=== PATIENT | female | born 1990 | race African-American/Black ===

== ENCOUNTER 2018-02-23 19:18 | Emergency (ER) | payer SELFPAY ==
[2018-02-23] MEDS ORDERED: OXYCODONE-ACETAMINOPHEN 5-325 MG TABLET PO ONE (20:06)
[2018-02-23] MEDS ORDERED: CARVEDILOL 12.5 MG TABLET PO ONE (20:06)
--- NOTE | 2018-02-23 20:08 | ER Document Report ---
HPI - HPI Patient complains to provider of: Bilateral heel pain Time Seen by Provider: 02/23/18 19:51 Onset: Last week Onset/Duration: Persistent Quality of pain: Achy Pain Level: 4 Context: Patient presents complaining of bilateral heel pain. 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 Patient denies any injury although does state that she has been up ambulating more frequently due to visiting family in chasing a toddler room. Patient states that she had a stroke last year due to hypertension and she is just started to get her strength back to ambulate. Patient does wear an orthotic brace in her shoe. Patient is here visiting from [place] and is only go to be in town a few more weeks. Patient denies any fever. Associated Symptoms: Other - Bilateral heel pain Exacerbated by: Standing, Movement, Walking Relieved by: Denies Similar symptoms previously: No Recently seen / treated by doctor: No - ROS ROS below otherwise negative: Yes Systems Reviewed and Negative: Yes All other systems reviewed and negative - CONSTITUTIONAL Constitutional: DENIES: Fever, Chills - NEURO Neurology: DENIES: Weakness - GASTROINTESTINAL Gastrointestinal: DENIES: Nausea - REPRODUCTIVE Reproductive: DENIES: : - MUSCULOSKELETAL Musculoskeletal: REPORTS: Extremity pain. DENIES: Swelling - DERM Skin Color: Normal Skin Problems: None Past Medical History - General Information source: Patient - Social History Smoking Status: Never Smoker Frequency of alcohol use: Occasional Drug Abuse: None Lives with: Family Family History: Reviewed & Not Pertinent - Medical History Medical History: Other - Lupus - Past Medical History Cardiac Medical History: Reports: Hx Congestive Heart Failure, Hx Hypertension, Other - Pulmonary hypertension Neurological Medical History: Reports: Hx Cerebrovascular Accident Musculoskeletal Medical History: Reports Other - Osteonecrosis Past Surgical History: Reports: Other - Lymph node biopsy Vertical Provider Document - CONSTITUTIONAL Agree With Documented VS: Yes Exam Limitations: No Limitations General Appearance: WD/WN, No Apparent Distress - INFECTION CONTROL TRAVEL OUTSIDE OF THE [place] IN LAST 30 DAYS: No - HEENT HEENT: Atraumatic, Normocephalic - NECK Neck: Normal Inspection - RESPIRATORY Respiratory: Breath Sounds Normal, No Respiratory Distress - CARDIOVASCULAR Cardiovascular: Regular Rate, Regular Rhythm - BACK Back: Normal Inspection - MUSCULOSKELETAL/EXTREMETIES Musculoskeletal/Extremeties: MAEW, Tender - Tenderness to plantar aspect of bilateral calcaneous - NEURO Level of Consciousness: Awake, Alert, Appropriate Motor/Sensory: No Motor Deficit - I am not sure what you have to have you to take this - DERM Integumentary: Warm, Dry, Rash - chronic hyperpigmeneted rash to face/extremities Course - Re-evaluation Re-evalutation: 02/23/18 21:35 Discussed with patient radiology findings. Patient states that her left foot is not the foot that is been as painful as the right. Patient states that due to her stroke she is not able to manage crutches. Patient declines immobilizing her left foot at this time. Patient does wear an orthotic that keeps her left foot at a 90 degree angle given her history of stroke and weakness. Patient does have tenderness along her plantar fascia of the right foot. Normal skin color and temperature overlying area of tenderness. No concern for sepsis. Patient encouraged to follow-up with either orthopedics or podiatry for further evaluation. Discussed pain management with patient. Patient encouraged to avoid use of NSAIDs given her history. - Vital Signs Vital signs: Temp Pulse Resp BP Pulse Ox 98.4 F 82 16 175/123 H 100 02/23/18 19:29 02/23/18 19:29 02/23/18 19:29 02/23/18 19:29 02/23/18 19:29 - Diagnostic Test Radiology reviewed: Image reviewed, Reports reviewed Discharge - Discharge Clinical Impression: Bilateral foot pain, Plantar fasciitis Stress fracture of calcaneus Qualifiers: Encounter type: initial encounter Laterality: unspecified laterality Qualified Code(s): M84.376A - Stress fracture, unspecified foot, initial encounter for fracture Condition: Stable Disposition: HOME, SELF-CARE Instructions: Fracture ([facility]), Oral Narcotic Medication ([facility]), Plantar Fasciitis or Heel Spur ([facility]) Additional Instructions: Return immediately for any new or worsening symptoms Followup with your primary care provider, call tomorrow to make a followup appointment Avoid use of nonsteroidal anti-inflammatories such as Motrin, Aleve and naproxen Follow-up with orthopedics or podiatry for further evaluation of your foot pain Wear good supportive shoes when up Prescriptions: Hydrocodone/Acetaminophen [Lamoure 5-325 mg Tablet] 1 tab PO Q6 PRN #15 tablet PRN Reason: Walker [Folding Walker] 1 each MC ASDIR PRN #1 each PRN Reason: Referrals: MINH PADILLA DPM [ACTIVE STAFF] - Follow up as needed SOPHIA CASTILLO DPM [ACTIVE STAFF] - Follow up as needed [facility] [Provider Group] - 02/25/18
--- NOTE | 2018-02-23 20:56 | RADIOLOGY REPORT (SQ) ---
EXAM DESCRIPTION: OS CALCIS/HEEL BILAT 2 VIEWS COMPLETED DATE/TIME: 02/23/2018 8:31 pm REASON FOR STUDY: bilat heel pain, hx osteonecrosis/ steroid use COMPARISON: None. NUMBER OF VIEWS: Two views. TECHNIQUE: Plantar and oblique radiographic images acquired of the right and left calcaneous. LIMITATIONS: None. FINDINGS: MINERALIZATION: Osteopenia. BONES: Short area of cortical discontinuity of the left calcaneus with a small cortical bulge seen on the axial view of the left calcaneus. No additional fracture. Diminutive appearance of of both miriam us with increased sclerosis. Large osteophytes arise and posterior subtalar joint and anterior talus . Cortical discontinuity along the posterior aspect of the right talar dome with sclerotic margins, likely sequelae of prior injury. JOINTS: No effusions. SOFT TISSUES: No soft tissue swelling. No foreign body. OTHER: No other significant finding. IMPRESSION: 1. Possible stress fracture left calcaneus. 2. Deformities and increased sclerosis of both talus common consistent with patient's history of avas cular necrosis. No prior images available for comparison to evaluate progression. TECHNICAL DOCUMENTATION: JOB ID: [id number] [employer]- All Rights Reserved Reading location - IP/workstation name: [email or web address]
[2018-02-23 21:46] VITALS: BP 152/108
== END 2018-02-23 22:21 | disposition home or self-care (01) ==
LOC: ER 19:18
DX: M72.2 Plantar fascial fibromatosis (principal); M84.376A Stress fracture, unspecified foot, initial encounter for fracture; M79.672 Pain in left foot; M79.671 Pain in right foot; X58.XXXA Exposure to other specified factors, initial encounter; I50.9 Heart failure, unspecified; I11.0 Hypertensive heart disease with heart failure; Z86.73 Personal history of transient ischemic attack (TIA), and cerebral infarction without residual deficits
CPT/HCPCS: 99283

== ENCOUNTER 2018-05-03 20:33 | Emergency (ER) | payer SELFPAY ==
--- NOTE | 2018-05-03 20:50 | ER Document Report ---
ED Medical Screen (RME) - General Stated Complaint: LEFT SIDE TINGLING,SEVERE HEADACHE,CHEST PAIN Time Seen by Provider: 05/03/18 20:47 Mode of Arrival: Ambulatory Information source: Patient Notes: Patient is a 27-year-old female with past medical history of lupus, pulmonary hypertension, CHF and CVA in 2018. She states that she has been having a tingling feeling on the left side, faint chest pains in the center of her chest, as well as headache that all started yesterday at approximately 11 AM. Patient denies any weakness and is able to ambulate without difficulty. Patient reports a left sided residual deficit from her previous stroke. TRAVEL OUTSIDE OF THE [place] IN LAST 30 DAYS: No - Related Data Allergies/Adverse Reactions: hydroxychloroquine [From Plaquenil] Allergy (Verified 02/23/18 20:08) Past Medical History - Past Medical History Cardiac Medical History: Reports: Hx Congestive Heart Failure, Hx Hypertension Neurological Medical History: Reports: Hx Cerebrovascular Accident Renal/ Medical History: Denies: Hx Peritoneal Dialysis Past Surgical History: Reports: Other - Lymph node biopsy
--- NOTE | 2018-05-03 21:00 | ER Document Report ---
Doctor's Note Notes: 05/03/18 20:58 Patient upgraded to BRITTNEY 2 due to significantly elevated blood pressure. Patient reports she is compliant with her antihypertensives, states her blood pressure is usually within normal ranges.
[2018-05-03 23:05] LABS: INTERNATIONAL RATION (INR) 0.93; PROTHROMBIN TIME 12.9 SEC (11.4-15.4)
[2018-05-03 23:06] LABS: PARTIAL THROMBOPLASTIN TIME 27.7 SEC (23.5-35.8)
[2018-05-03 23:06] LABS: HEMATOCRIT 35.8 % (36.0-47.0); HEMOGLOBIN 11.4 g/dL (12.0-15.5); MEAN CORPUSCULAR HEMOGLOBIN 22.4 pg (27.0-33.4); MEAN CORPUSCULAR HGB CONC 31.8 g/dL (32.0-36.0); MEAN CORPUSCULAR VOLUME 71 fl (80-97); PLATELET COUNT 324 10^3/uL (150-450); RED BLOOD COUNT 5.08 10^6/uL (3.72-5.28); RED CELL DISTRIBUTION WIDTH 20.9 % (11.5-14.0); WHITE BLOOD COUNT 4.3 10^3/uL (4.0-10.5)
--- NOTE | 2018-05-03 23:07 | EKG REPORT ---
SEVERITY:- ABNORMAL ECG - SINUS RHYTHM CONSIDER LEFT VENTRICULAR HYPERTROPHY BORDERLINE T ABNORMALITIES, INFERIOR LEADS : Confirmed by: Amaris Howard 03-May-2018 23:06:02
[2018-05-03 23:19] LABS: ALANINE AMINOTRANSFERASE 18 U/L (9-52); ALBUMIN 3.8 g/dL (3.5-5.0); ALKALINE PHOSPHATASE 51 U/L (38-126); ANION GAP 6 (5-19); ASPARTATE AMINO TRANSFERASE 21 U/L (14-36); BILIRUBIN,DIRECT 0.1 mg/dL (0.0-0.4); BILIRUBIN,TOTAL 0.4 mg/dL (0.2-1.3); BLOOD UREA NITROGEN 15 mg/dL (7-20); CALCIUM 9.2 mg/dL (8.4-10.2); CARBON DIOXIDE 29 mmol/L (22-30); CHLORIDE 103 mmol/L (98-107); CREATINE KINASE 27 U/L (30-135); GLUCOSE 102 mg/dL (75-110); POTASSIUM 3.8 mmol/L (3.6-5.0); SODIUM 138.3 mmol/L (137-145); TOTAL PROTEIN 7.6 g/dL (6.3-8.2)
[2018-05-03 23:26] LABS: ABSOLUTE LYMPHOCYTES# (MANUAL) 1.8 10^3/uL (0.5-4.7); ABSOLUTE MONOCYTES # (MANUAL) 0.5 10^3/uL (0.1-1.4); ABSOLUTE NEUTROPHILS# (MANUAL) 2.1 10^3/uL (1.7-8.2); BASOPHILS % (MANUAL) 0 % (0-2); EOSINOPHILS % (MANUAL) 0 % (0-6); LYMPHOCYTES % (MANUAL) 41 % (13-45); MONOCYTES % (MANUAL) 11 % (3-13); SEGMENTED NEUTROPHILS % (MAN) 48 % (42-78); TOTAL CELLS COUNTED 100
[2018-05-03 23:27] LABS: ANISOCYTOSIS 3+; HYPOCHROMASIA 1+; POIKILOCYTOSIS 2+; POLYCHROMASIA 3+; TARGET CELLS 1+; TEAR DROP CELLS 1+
[2018-05-03 23:28] LABS: PLATELET COMMENT ADEQUATE
[2018-05-03 23:40] LABS: CREATINE KINASE MB < 0.22 ng/mL (<4.55); TROPONIN I < 0.012 ng/mL
[2018-05-04] MEDS ORDERED: HALOPERIDOL LACTATE INJ 5 MG/1 ML VIAL IV ONE (00:01)
--- NOTE | 2018-05-04 00:49 | ER Document Report ---
ED General - General Chief Complaint: Medical Complaint Stated Complaint: LEFT SIDE TINGLING,SEVERE HEADACHE,CHEST PAIN Time Seen by Provider: 05/03/18 20:47 Mode of Arrival: Ambulatory Notes: Patient is a 27-year-old female with past medical history of lupus, pulmonary hypertension, CHF and CVA in 2018. She states that she has been having a tingling feeling on the left side, as well as headache that all started ye sterday at approximately 11 AM. Patient complained of chest pain in triage but denies this to me. Headache was gradual in onset, is a throbbing, aching, global pain. Worsened by lights, sounds. Has this history of headaches in the past uncertain if this is worse than previous headaches. Denies fever or constitutional symptoms. No neck pain. Patient denies any weakness and is able to ambulate without difficulty. Patient reports a left sided residual deficit from her previous stroke. TRAVEL OUTSIDE OF THE [place] IN LAST 30 DAYS: No - Related Data Allergies/Adverse Reactions: hydroxychloroquine [From Plaquenil] Allergy (Verified 02/23/18 20:08) Past Medical History - General Information source: Patient - Social History Smoking Status: Never Smoker Frequency of alcohol use: Occasional Drug Abuse: None Lives with: Family Family History: Reviewed & Not Pertinent Patient has suicidal ideation: No Patient has homicidal ideation: No - Past Medical History Cardiac Medical History: Reports: Hx Congestive Heart Failure, Hx Hypertension Neurological Medical History: Reports: Hx Cerebrovascular Accident Renal/ Medical History: Denies: Hx Peritoneal Dialysis Past Surgical History: Reports: Other - Lymph node biopsy Review of Systems - Review of Systems Notes: Constitutional: Negative for fever. HENT: Negative for sore throat. Eyes: Negative for visual changes. Cardiovascular: Positive for chest pain. Respiratory: Negative for shortness of breath. Gastrointestinal: Negative for abdominal pain, vomiting or diarrhea. Genitourinary: Negative for dysuria. Musculoskeletal: Negative for back pain. Skin: Negative for rash. Neurological: Positive for headache, left upper extremity paresthesias 10 point ROS negative except as marked above and in HPI. Physical Exam - Vital signs Vitals: Temp Pulse Resp BP Pulse Ox 99.2 F 74 16 154/123 H 99 05/03/18 20:55 05/03/18 20:55 05/03/18 20:55 05/03/18 20:55 05/03/18 20:55 Interpretation: Hypertensive Notes: PHYSICAL EXAMINATION: GENERAL: Well-appearing, well-nourished and in no acute distress. HEAD: Atraumatic, normocephalic. EYES: Pupils equal round and reactive to light, extraocular movements intact, sclera anicteric, conjunctiva are normal. ENT: nares patent, oropharynx clear without exudates. Moist mucous membranes. NECK: Normal range of motion, supple without lymphadenopathy LUNGS: Breath sounds clear to auscultation bilaterally and equal. No wheezes rales or rhonchi. HEART: Regular rate and rhythm without murmurs ABDOMEN: Soft, nontender, normoactive bowel sounds. No guarding, no rebound. No masses appreciated. EXTREMITIES: Normal range of motion, no pitting or edema. No cyanosis. NEUROLOGICAL: Face symmetric. Tongue protrudes midline. Extraocular motions intact. Pupils are 2 mm and equally reactive. Normal speech. 5 out of 5 strength in both the distal and proximal upper and lower extremities bilaterally. Sensation is grossly intact throughout. Finger to nose testing normal. Pronator drift normal. PSYCH: Normal mood, normal affect. SKIN: Warm, Dry, normal turgor, no rashes or lesions noted. Course - Re-evaluation Re-evalutation: 05/04/18 00:48 Patient presents with 36 hours of left upper extremity paresthesias as well as a headache and chest discomfort. The patient has a history of a prior CVA, has some residual left-sided deficits at baseline. The only complaint regarding her neurologic status is that her left upper extremity feels tingly particularly in the second through fourth digits on the volar pads as well as over the forearm. She states that her weakness is unchanged. Denies any increased difficulty in walking. On neurologic exam she has 5 out of 5 biceps and triceps strength bilaterally, RMU motor and sensory distribution is intact. There is no sensory deficits. She is clear to state that it feels more of a added sensation such as a paresthesia as opposed to true loss of sensation. Her symptoms have been present for 36 hours. Her headache was gradual in onset, has a history of similar headaches, not clinically consistent with a meningitis, insufflated, subarachnoid hemorrhage or intracranial mass. Overall very low clinical edna picion for recurrent CVA although given duration of symptoms I think a CT of the head without contrast would be reasonable to rule out any evidence of acute infarction which should be present at this time given duration of symptoms. Will also provide haloperidol to treat her headache and see if this resolves her paresthesias. 05/04/18 02:[address] scan. She states that after haloperidol all of her paresthesias has resolved. She feels at baseline, states that she no longer feels that she needs and would like to go home. Given the complete resolution of her symptoms after receiving haloperidol for migraine I suspect that her symptoms were related to the underlying headache. Patient understands that we cannot definitively exclude stroke without imaging of the brain and he understands this risk. At this time will discharge with return precautions and follow-up recommendations. Verbal discharge instructions given a the bedside and opportunity for questions given. Medication warnings reviewed. Patient is in agreement with this plan and has verbalized understanding of return precautions and the need for primary care follow-up in the next 24-72 hours. - Vital Signs Vital signs: Temp Pulse Resp BP Pulse Ox 99.2 F 74 18 150/99 H 100 05/03/18 20:55 05/03/18 20:55 05/04/18 02:00 05/04/18 02:00 05/04/18 02:00 - Laboratory Result Diagrams: 05/03/18 22:47 05/03/18 22:32 Laboratory results interpreted by me: 05/03/18 05/03/18 22:32 22:47 Hgb 11.4 L Hct 35.8 L MCV 71 L MCH 22.4 L MCHC 31.8 L RDW 20.9 H Creatine Kinase 27 L - EKG Interpretation by Me Additional EKG results interpreted by me: 05/04/18 02:52 Sinus rhythm, rate 61. No ST elevations or depressions. QTC 415. Discharge - Discharge Clinical Impression: Paresthesia of left upper extremity Headache Qualifiers: Headache type: unspecified Headache chronicity pattern: acute headache Intractability: not intractable Qualified Code(s): R51 - Headache Condition: Good Disposition: HOME, SELF-CARE Additional Instructions: You have been seen in the Emergency Department (ED) for a headache. Please use Tylenol (acetaminophen) or Motrin (ibuprofen) as needed for symptoms, but only as written on the box. As we have discussed, please follow up with your primary care doctor as soon as possible regarding today's ED visit and your headache symptoms. Call your doctor or return to the ED if you have a worsening headache, sudden and severe headache, confusion, slurred speech, facial droop, weakness or numbness in any arm or leg, extreme fatigue, or other symptoms that concern you.
[2018-05-04] MEDS ORDERED: DIPHENHYDRAMINE HCL 50 MG/ML VIAL IV ONE (02:11)
[2018-05-04 03:39] VITALS: BP 160/98
== END 2018-05-04 03:50 | disposition home or self-care (01) ==
LOC: ER 20:33
DX: R20.2 Paresthesia of skin (principal); R51 Headache; R07.9 Chest pain, unspecified; Z86.73 Personal history of transient ischemic attack (TIA), and cerebral infarction without residual deficits; I50.9 Heart failure, unspecified; I11.0 Hypertensive heart disease with heart failure
CPT/HCPCS: 93005; 99284; 96374; 96375; 36415; 82553; 82550; 85025; 85610; 85730; 80053; 84484; 93010; J1200; J1630

== ENCOUNTER 2018-11-13 12:13 | Emergency (ER) | payer MEDICAID ==
--- NOTE | 2018-11-13 12:29 | ER Document Report ---
ED Medical Screen (RME) - General Stated Complaint: ABDOMINAL PAIN, NAUSEA, VAGINAL BLEEDING Time Seen by Provider: 11/13/18 12:20 Mode of Arrival: Ambulatory Information source: Patient Notes: 28-year-old female presented to ED for complaint of nausea no vomiting vaginal bleeding foul-smelling urine x2 days. She states she just felt a little thick thought she was going to vomit. She does have a history of lupus pulmonary hypertension congestive heart failure and she had a stroke in 2018 with left- sided weakness. He has had lymph node biopsies. She states she smokes 3 cigarettes a day occasionally drinks and does not do any drugs Works [place] lives alone. She states she also has constipation. Patient is alert oriented respirations regular and unlabored speaking in full sentences walks with even steady gait. I have greeted and performed a rapid initial assessment of this patient. A comprehensive ED assessment and evaluation of the patient, analysis of test results and completion of medical decision making process will be conducted by an additional ED providers. TRAVEL OUTSIDE OF THE [place] IN LAST 30 DAYS: No - Related Data Allergies/Adverse Reactions: hydroxychloroquine [From Plaquenil] Allergy (Verified 11/13/18 12:24) Past Medical History - Past Medical History Cardiac Medical History: Reports: Hx Congestive Heart Failure, Hx Hypertension Neurological Medical History: Reports: Hx Cerebrovascular Accident Renal/ Medical History: Denies: Hx Peritoneal Dialysis Past Surgical History: Reports: Other - Lymph node biopsy Physical Exam - Vital signs Vitals: Temp Pulse Resp BP Pulse Ox 98.5 F 108 H 16 169/125 H 100 11/13/18 12:24 11/13/18 12:24 11/13/18 12:24 11/13/18 12:24 11/13/18 12:24 Course - Vital Signs Vital signs: Temp Pulse Resp BP Pulse Ox 98.5 F 108 H 16 169/125 H 100 11/13/18 12:24 11/13/18 12:24 11/13/18 12:24 11/13/18 12:24 11/13/18 12:24
[2018-11-13] MEDS ORDERED: ONDANSETRON 4 MG TAB.RAPDIS PO ONE (12:30)
[2018-11-13 13:20] LABS: INTERNATIONAL RATION (INR) 0.95; PARTIAL THROMBOPLASTIN TIME 27.2 SEC (23.5-35.8); PROTHROMBIN TIME 12.6 SEC (11.4-15.4)
[2018-11-13 13:36] LABS: ALBUMIN 3.8 g/dL (3.5-5.0); ALKALINE PHOSPHATASE 66 U/L (38-126); ANION GAP 8 (5-19); ASPARTATE AMINO TRANSFERASE 31 U/L (14-36); BILIRUBIN,TOTAL 0.5 mg/dL (0.2-1.3); BLOOD UREA NITROGEN 7 mg/dL (7-20); CALCIUM 9.1 mg/dL (8.4-10.2); CARBON DIOXIDE 26 mmol/L (22-30); CHLORIDE 105 mmol/L (98-107); CREATINE KINASE 32 U/L (30-135); GLUCOSE 88 mg/dL (75-110); TOTAL PROTEIN 7.8 g/dL (6.3-8.2)
[2018-11-13 13:37] LABS: ABSOLUTE LYMPHOCYTES (AUTO) 1.1 10^3/uL (0.5-4.7); ABSOLUTE MONOCYTES (AUTO) 0.6 10^3/uL (0.1-1.4); ABSOLUTE NEUT (AUTO) 3.8 10^3/uL (1.7-8.2); BASOPHILS % (AUTO) 0.4 % (0-2); HEMATOCRIT 41.6 % (36.0-47.0); HEMOGLOBIN 13.6 g/dL (12.0-15.5); LYMPHOCYTES % (AUTO) 20.7 % (13-45); MEAN CORPUSCULAR HEMOGLOBIN 25.5 pg (27.0-33.4); MEAN CORPUSCULAR HGB CONC 32.7 g/dL (32.0-36.0); MEAN CORPUSCULAR VOLUME 78 fl (80-97); MONOCYTES % (AUTO) 10.8 % (3-13); PLATELET COUNT 181 10^3/uL (150-450); RED BLOOD COUNT 5.34 10^6/uL (3.72-5.28); RED CELL DISTRIBUTION WIDTH 17.7 % (11.5-14.0); SEGMENTED NEUTROPHILS % (AUTO) 68.1 % (42-78); TOTAL CELLS COUNTED % (AUTO) 100 %; WHITE BLOOD COUNT 5.5 10^3/uL (4.0-10.5)
[2018-11-13 13:49] LABS: CREATINE KINASE MB < 0.22 ng/mL (<4.55); TROPONIN I < 0.012 ng/mL
[2018-11-13 14:02] LABS: BACTERIA (WET MOUNT) 3+ BACTERIA SEEN; EPITHELIALS (WET MOUNT) 3+ EPITHELIALS SEEN; RBCS (WET MOUNT) FEW RBCS SEEN; T.VAGINALIS (WET MOUNT) TRICHOMONAS SEEN; WBCS (WET MOUNT) 1+ WBCS SEEN; YEAST (WET MOUNT) NO YEAST SEEN
[2018-11-13 14:04] LABS: APPEARANCE,URINE SLIGHTLY-CLOUDY; BILIRUBIN,URINE NEGATIVE (NEGATIVE); COLOR,URINE YELLOW; GLUCOSE, URINE NEGATIVE (NEGATIVE); KETONES,URINE NEGATIVE (NEGATIVE); LEUKOCYTE ESTERASE,URINE TRACE (NEGATIVE); NITRITE,URINE NEGATIVE (NEGATIVE); PROTEIN,URINE 100 mg/dL (NEGATIVE); UROBILINOGEN,URINE NEGATIVE mg/dL (<2.0)
[2018-11-13 15:19] LABS: CHLAM PCR NOT DETECTED (NOT DETECT)
[2018-11-13] MEDS ORDERED: CEFTRIAXONE INJ 250 MG VIAL IM ONE (15:41)
[2018-11-13] MEDS ORDERED: AZITHROMYCIN 250 MG TABLET PO ONE (15:41)
[2018-11-13] MEDS ORDERED: METRONIDAZOLE 500 MG TABLET PO ONE (15:41)
--- NOTE | 2018-11-13 16:16 | ER Document Report ---
ED General - General Chief Complaint: Vaginal Bleeding Stated Complaint: ABDOMINAL PAIN, NAUSEA, VAGINAL BLEEDING Time Seen by Provider: 11/13/18 12:20 Primary Care Provider: ANNE MALDONADO MD [Primary Care Provider] - Follow up as needed Mode of Arrival: Ambulatory TRAVEL OUTSIDE OF THE [place] IN LAST 30 DAYS: No - HPI Notes: This is a 28-year-old female who presents today with a complaint of vaginal discharge, vaginal bleeding for the past 2 to 3 days. Patient states her last menstrual. Was about 2 weeks ago she should not be having. Now. She complains of some nausea and had some vomiting yesterday but not today. She denies any chest pain. She denies any fever or chills. She describes her symptoms as mild. She also complains of urinary frequency, urgency and dysuria. There are no obvious aggravating or relieving factors. - Related Data Allergies/Adverse Reactions: hydroxychloroquine [From Plaquenil] Allergy (Verified 11/13/18 12:24) Past Medical History - General Information source: Patient - Social History Smoking Status: Current Every Day Smoker Family History: Reviewed & Not Pertinent Patient has suicidal ideation: No Patient has homicidal ideation: No - Past Medical History Cardiac Medical History: Reports: Hx Congestive Heart Failure, Hx Hypertension Neurological Medical History: Reports: Hx Cerebrovascular Accident Renal/ Medical History: Denies: Hx Peritoneal Dialysis Past Surgical History: Reports: Other - Lymph node biopsy Review of Systems - Review of Systems Constitutional: denies: Fever Cardiovascular: denies: Chest pain, Palpitations Gastrointestinal: Nausea. denies: Abdominal pain, Diarrhea Genitourinary: Burning, Dysuria, Frequency, Urgency. denies: Flank pain Female Genitourinary: Irregular period, Vaginal discharge, Vaginal bleeding, Vaginal odor. denies: Neurological/Psychological: denies: Headaches -: Yes All other systems reviewed and negative Physical Exam - Vital signs Vitals: Temp Pulse Resp BP Pulse Ox 98.5 F 108 H 16 169/125 H 100 11/13/18 12:24 11/13/18 12:24 11/13/18 12:24 11/13/18 12:24 11/13/18 12:24 - General General appearance: Appears well, Alert - Respiratory Respiratory status: No respiratory distress Chest status: Nontender Breath sounds: Normal Chest palpation: Normal - Cardiovascular Rhythm: Regular Heart sounds: Normal auscultation Murmur: No - Abdominal Inspection: Normal Distension: No distension Bowel sounds: Normal Tenderness: Nontender Organomegaly: No organomegaly - Genitourinary Speculum exam: Cervix closed, Vaginal discharge - There is vaginal discharge. No bleeding appreciated. No cervical motion tenderness. No adnexal tenderness. 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 Vaginal bleeding: None Bimanuel exam: No: Cervical motion tender, Bladder/Urethral tender, Adnexal mass, Adnexal tenderness - Neurological Neuro grossly intact: Yes Cognition: Normal Orientation: AAOx4 Mereta Coma Scale Eye Opening: Spontaneous Mereta Coma Scale Verbal: Oriented Mereta Coma Scale Motor: Obeys Commands Hyun Coma Scale Total: 15 Speech: Normal Motor strength normal: LUE, RUE, LLE, RLE Sensory: Normal - Psychological Associated symptoms: Normal affect, Normal mood Course - Re-evaluation Re-evalutation: 11/13/18 16:16 Differential diagnosis includes UTI versus vaginitis versus ectopic versus urethritis. 11/13/18 16:35 Patient reevaluated. Patient is doing well. Feels fine. Labs reviewed. Will cover her for trichomonas. Will also cover for GC chlamydia. Stable for discharge. Follow-up discussed. 11/13/18 16:36 - Vital Signs Vital signs: Temp Pulse Resp BP Pulse Ox 98.5 F 108 H 24 H 144/115 H 100 11/13/18 12:24 11/13/18 12:24 11/13/18 14:01 11/13/18 14:01 11/13/18 14:01 - Laboratory Result Diagrams: 11/13/18 12:50 11/13/18 12:50 Laboratory results interpreted by me: 11/13/18 11/13/18 12:50 12:50 RBC 5.34 H MCV 78 L MCH 25.5 L RDW 17.7 H Urine Protein 100 H Urine Blood MODERATE H Ur Leukocyte Esterase TRACE H Urine Ascorbic Acid 20 H Discharge - Discharge Clinical Impression: Trichomonas vaginalis infection, Acute UTI, DUB (dysfunctional uterine bleeding) Condition: Good Disposition: HOME, SELF-CARE Instructions: Trichomonas Infection ([facility]), Urinary Tract Infection ([facility]) Prescriptions: Ciprofloxacin HCl [Cipro 500 mg Tablet] 500 mg PO BID 10 Days #20 tablet Metronidazole [Flagyl 500 mg Tablet] 500 mg PO BID 7 Days #14 tablet Referrals: ANNE MALDONADO MD [Primary Care Provider] - Follow up as needed
[2018-11-13 16:46] VITALS: BP 172/116
== END 2018-11-13 16:52 | disposition home or self-care (01) ==
LOC: ER 12:13
DX: N93.8 Other specified abnormal uterine and vaginal bleeding (principal); N39.0 Urinary tract infection, site not specified; A59.01 Trichomonal vulvovaginitis; R11.0 Nausea; I10 Essential (primary) hypertension; F17.200 Nicotine dependence, unspecified, uncomplicated; Z88.8 Allergy status to other drugs, medicaments and biological substances
CPT/HCPCS: 99284; 96372; 36415; 87086; 82553; 87210; 82550; 84703; 85025; 85610; 85730; 87088; 80053; 81001; 84484; 87186; 87491; 87591; Q0144; S0119; J3490; J0696

== ENCOUNTER 2018-11-29 11:57 | Emergency (ER) | payer MEDICAID ==
[2018-11-29] MEDS ORDERED: ASPIRIN 81 MG TABLET, CHEWABLE PO ONE (12:00)
[2018-11-29 12:29] LABS: ABSOLUTE MONOCYTES (AUTO) 0.4 10^3/uL (0.1-1.4); ABSOLUTE NEUT (AUTO) 1.6 10^3/uL (1.7-8.2); PLATELET COUNT 187 10^3/uL (150-450); TOTAL CELLS COUNTED % (AUTO) 100 %; WHITE BLOOD COUNT 3.1 10^3/uL (4.0-10.5)
[2018-11-29 12:35] LABS: BASOPHILS % (AUTO) 0.5 % (0-2); HEMOGLOBIN 12.9 g/dL (12.0-15.5); LYMPHOCYTES % (AUTO) 33.2 % (13-45); MEAN CORPUSCULAR HEMOGLOBIN 25.1 pg (27.0-33.4); MEAN CORPUSCULAR HGB CONC 32.3 g/dL (32.0-36.0); MEAN CORPUSCULAR VOLUME 78 fl (80-97); MONOCYTES % (AUTO) 12.7 % (3-13); RED BLOOD COUNT 5.15 10^6/uL (3.72-5.28); RED CELL DISTRIBUTION WIDTH 16.3 % (11.5-14.0); SEGMENTED NEUTROPHILS % (AUTO) 53.6 % (42-78)
[2018-11-29 12:52] LABS: ALBUMIN 3.4 g/dL (3.5-5.0); ALKALINE PHOSPHATASE 58 U/L (38-126); ANION GAP 8 (5-19); ASPARTATE AMINO TRANSFERASE 41 U/L (14-36); BILIRUBIN,DIRECT 0.1 mg/dL (0.0-0.4); BILIRUBIN,TOTAL 0.4 mg/dL (0.2-1.3); BLOOD UREA NITROGEN 7 mg/dL (7-20); CALCIUM 8.8 mg/dL (8.4-10.2); CARBON DIOXIDE 26 mmol/L (22-30); CHLORIDE 105 mmol/L (98-107); CREATINE KINASE 40 U/L (30-135); GLUCOSE 101 mg/dL (75-110); POTASSIUM 3.5 mmol/L (3.6-5.0); TOTAL PROTEIN 7.3 g/dL (6.3-8.2)
[2018-11-29 13:05] LABS: CREATINE KINASE MB 0.39 ng/mL (<4.55)
[2018-11-29 13:06] LABS: TROPONIN I < 0.012 ng/mL
--- NOTE | 2018-11-29 13:19 | RADIOLOGY REPORT (SQ) ---
EXAM DESCRIPTION: CHEST 2 VIEWS COMPLETED DATE/TIME: 11/29/2018 1:08 pm REASON FOR STUDY: cough chest pain pain with deep breath COMPARISON: None. EXAM PARAMETERS: NUMBER OF VIEWS: two views TECHNIQUE: Digital Frontal and Lateral radiographic views of the chest acquired. RADIATION DOSE: NA LIMITATIONS: none FINDINGS: LUNGS AND PLEURA: No opacities, masses or pneumothorax. No pleural effusion. MEDIASTINUM AND HILAR STRUCTURES: No masses or contour abnormalities. HEART AND VASCULAR STRUCTURES: Heart normal size. No evidence for failure. BONES: No acute findings. HARDWARE: None in the chest. OTHER: No other significant finding. IMPRESSION: NO ACUTE RADIOGRAPHIC FINDING IN THE CHEST. TECHNICAL DOCUMENTATION: JOB ID: [id number] [employer]- All Rights Reserved Reading location - IP/workstation name: [email or web address]
[2018-11-29] MEDS ORDERED: HYDRALAZINE HCL INJ/PF 20 MG/1 ML SDV IV ONE (14:16)
--- NOTE | 2018-11-29 14:30 | ER Document Report ---
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 Patient describes the pain as central and sharp. Patient states the pain is still there and has remained constant since onset. Patient states she has had this pain in the past and it was caused by "high blood pressure". Patient states that she has been going back and forth to [place] to get her prescriptions filled because she "does not have a doctor here yet". Patient states she moved here in March 2018 and it is now November. TRAVEL OUTSIDE OF THE [place] IN LAST 30 DAYS: No - Related Data Allergies/Adverse Reactions: hydroxychloroquine [From Plaquenil] Allergy (Verified 11/29/18 12:15) ibuprofen Adverse Reaction (Verified 11/29/18 12:15) Past Medical History - General Information source: Patient - Social History Smoking Status: Current Every Day Smoker Cigarette use (# per day): Yes - 1/4 ppd Chew tobacco use (# tins/day): No Smoking Education Provided: No Frequency of alcohol use: None Drug Abuse: None Lives with: Family Family History: Reviewed & Not Pertinent Patient has suicidal ideation: No Patient has homicidal ideation: No - Past Medical History Cardiac Medical History: Reports: Hx Congestive Heart Failure, Hx Hypertension Neurological Medical History: Reports: Hx Cerebrovascular Accident - 2018 Past Surgical History: Reports: Other - Lymph node biopsy Review of Systems - Review of Systems Constitutional: No symptoms reported EENT: No symptoms reported Cardiovascular: See HPI, Chest pain Respiratory: No symptoms reported Gastrointestinal: No symptoms reported Genitourinary: No symptoms reported Female Genitourinary: No symptoms reported Musculoskeletal: No symptoms reported Skin: No symptoms reported Hematologic/Lymphatic: No symptoms reported Neurological/Psychological: No symptoms reported -: Yes All other systems reviewed and negative Physical Exam - Vital signs Vitals: Pulse Ox 100 11/29/18 12:11 - Notes Notes: Physical Exam: General: Alert, appears well, sleeping soundly upon entry. HEENT: Normocephalic. Atraumatic. PERRL. Extraocular movements intact. Oropharynx clear. Neck: Supple. Non-tender. Respiratory: No respiratory distress. Clear and equal breath sounds bilaterally. No chest tenderness with palpation. Cardiovascular: Regular rate and rhythm. Abdominal: Normal Inspection. Non-tender. No distension. Normal Bowel Sounds. Back: No gross abnormalities. Extremities: Moves all four extremities. Upper extremities: Normal inspection. Normal ROM. Lower extremities: Normal inspection. No edema. Normal ROM. Neurological: Normal cognition. AAOx4. Normal speech. Residual left sided weakness from CVA in 2018. Psychological: Normal affect. Normal Mood. Skin: Warm. Dry. Normal color. Skin scarring consistent with discoid lupus. Course - Re-evaluation Re-evalutation: 11/29/18 15:28 Patient has had persistent chest pain for several hours. EKG does not show acute changes. Serial cardiac troponins are negative. 11/29/18 15:36 Patient's blood pressure is now down to 137/101 after the IV hydralazine. She will be discharged home with a prescription for low-dose hydralazine to take unt il she can follow-up with her primary care at the first of the week to reevaluate her blood pressure. - Vital Signs Vital signs: Temp Pulse Resp BP Pulse Ox 98.3 F 100 11/29/18 12:17 11/29/18 12:11 - Laboratory Result Diagrams: 11/29/18 12:11 11/29/18 12:11 Laboratory results interpreted by me: 11/29/18 11/29/18 12:11 12:11 WBC 3.1 L MCV 78 L MCH 25.1 L RDW 16.3 H Absolute Neuts (auto) 1.6 L Potassium 3.5 L AST 41 H Albumin 3.4 L - Diagnostic Test Radiology reviewed: Image reviewed, Reports reviewed - Chest x-ray does not show acute radiographic findings. - EKG Interpretation by Dc EKG shows normal: Sinus rhythm, [place], Intervals, QRS Complexes, ST-T Waves Rate: Tachycardia - 102 Voltage: Consistant with LVH P Waves: LAE Discharge - Discharge Clinical Impression: Chest pain Qualifiers: Chest pain type: unspecified Qualified Code(s): R07.9 - Chest pain, unspecified High blood pressure Qualifiers: Hypertension type: essential hypertension Qualified Code(s): I10 - Essential (primary) hypertension Condition: Stable Disposition: HOME, SELF-CARE Additional Instructions: Chest Pain of Unclear Cause The exact cause of your chest pain isn't clear. Fortunately, there is no ev idence of a dangerous medical condition. Further testing may be required to find the source of the pain. Most often, we find that this pain is coming from the chest wall -- the muscles or rib joints in the chest. But chest pain can come from the lung and lung lining, the esophagus, the heart valves or heart lining, and even the stomach or gallbladder. Rest. Eat lightly until the pain is gone. We may prescribe medicine for pain and inflammation. You should call the physician immediately if the pain radiates to the shoulder, jaw or arms; if you start to run a fever or develop a cough; or if you develop shortness of breath, or other new or alarming symptoms. Take Tylenol and ibuprofen or Aleve for your chest pain. Limit activity for a few days. Take the hydralazine as prescribed to help keep your blood pressure down until you can see your primary care provider at the first of the week. Check your blood pressure at home at least twice a day for the next few days while you are taking the hydralazine. RETURN TO THE EMERGENCY ROOM IF ANY NEW OR WORSENING SYMPTOMS. Prescriptions: Hydralazine HCl [Apresoline 10 mg Tablet] 10 mg PO QID #40 tab Forms: Return to Work Referrals: [facility] [Provider Group] - Follow up in 3-5 days Scribe Attestation: 11/29/18 15:29 I personally performed the services described in the documentation, reviewed and edited the documentation which was dictated to the scribe in my presence, and it accurately records my words and actions. I personally performed the services described in the documentation, reviewed and edited the documentation which was dictated to the scribe in my presence, and it accurately records my words and actions.
[2018-11-29 16:32] VITALS: BP 148/108
--- NOTE | 2018-12-01 00:27 | EKG REPORT ---
SEVERITY:- ABNORMAL ECG - SINUS TACHYCARDIA PROBABLE LEFT ATRIAL ABNORMALITY PROBABLE LVH WITH SECONDARY REPOL ABNRM : Confirmed by: Amaris Howard 01-Dec-2018 00:26:22
== END 2018-11-29 16:33 | disposition home or self-care (01) ==
LOC: ER 11:57
DX: R07.9 Chest pain, unspecified (principal); I10 Essential (primary) hypertension; F17.210 Nicotine dependence, cigarettes, uncomplicated; R00.0 Tachycardia, unspecified; I69.354 Hemiplegia and hemiparesis following cerebral infarction affecting left non-dominant side; Z88.8 Allergy status to other drugs, medicaments and biological substances
CPT/HCPCS: 93005; 36415; 82553; 82550; 84703; 85025; 80053; 84484; 71046; 93010; J0360; 96374; 99285

== ENCOUNTER 2019-04-14 07:04 | Observation (INO) | payer MEDICAID ==
[2019-04-14] MEDS ORDERED: NORMAL SALINE 500 ML IV ONE ×2 (08:16→09:39)
[2019-04-14] MEDS ORDERED: MORPHINE SULFATE 10 MG/ML INJ IV ONE (08:19)
[2019-04-14 08:32] LABS: A TYPE INFLUENZA AG NEGATIVE (NEGATIVE); B INFLUENZA AG NEGATIVE (NEGATIVE)
--- NOTE | 2019-04-14 08:38 | ER Document Report ---
ED General - General Chief Complaint: Weakness Stated Complaint: WEAKNES/CHEST PAIN Time Seen by Provider: 04/14/19 08:06 Primary Care Provider: GUSTABO BAIRES MD [Primary Care Provider] - Follow up as needed Notes: 28-year-old female with history of CVA with left-sided deficits in 2018, lupus, pulmonary hypertension, and CHF presents with generalized weakness, generalized body aches, chest pain which she says is associated with her body aches, chills, nonproductive cough, and shortness of breath since Sunday. EMS reports fever of 101.2, patient took total 2600 mg of Tylenol prior to arrival. Patient denies any nausea/vomiting. TRAVEL OUTSIDE OF THE [place] IN LAST 30 DAYS: No - Related Data Allergies/Adverse Reactions: hydroxychloroquine [From Plaquenil] Allergy (Verified 04/14/19 07:38) ibuprofen Adverse Reaction (Verified 04/14/19 07:38) Home Medications: CARVEDILOL, FISH OIL, PREDNISONE, AND MORE Past Medical History - Social History Smoking Status: Former Smoker Chew tobacco use (# tins/day): No Frequency of alcohol use: None Drug Abuse: None Family History: Reviewed & Not Pertinent Patient has suicidal ideation: No Patient has homicidal ideation: No - Past Medical History Cardiac Medical History: Reports: Hx Congestive Heart Failure, Hx Hypertension Neurological Medical History: Reports: Hx Cerebrovascular Accident - 2018 Renal/ Medical History: Denies: Hx Peritoneal Dialysis Past Surgical History: Reports: Other - Lymph node biopsy Review of Systems - Review of Systems Notes: Constitutional: Positive for fever. HENT: Positive for nonproductive cough. Negative for sore throat. Eyes: Negative for visual changes. Cardiovascular: Positive for chest pain. Respiratory: Positive for shortness of breath. Gastrointestinal: Negative for abdominal pain, vomiting or diarrhea. Genitourinary: Negative for dysuria. Musculoskeletal: Positive for generalized body aches. Negative for back pain. Skin: Negative for rash. Neurological: Positive for generalized weakness and headache when she coughs. Negative for numbness. 10 point ROS negative except as marked above and in HPI. Physical Exam - Vital signs Vitals: Temp 99.8 F 04/14/19 08:00 - Notes Notes: GENERAL: Well-appearing, well-nourished and in no acute distress. HEAD: Atraumatic, normocephalic. EYES: Extraocular movements intact, sclera anicteric, conjunctiva are normal. ENT: Nares patent, oropharynx clear without exudates. Moist mucous membranes. NECK: Normal range of motion, supple without lymphadenopathy or JVD. LUNGS: Breath sounds clear to auscultation bilaterally and equal. No wheezes rales or rhonchi. HEART: Regular rate and rhythm without murmurs, rubs or gallops. ABDOMEN: Soft, nontender. No guarding, no rebound. No masses appreciated. EXTREMITIES: Normal range of motion, no pitting or edema. No clubbing or cyanosis. NEUROLOGICAL: Cranial nerves II through XII grossly intact. Normal speech, normal gait. Residual left sided weakness from CVA in 2018 PSYCH: Normal mood, normal affect. SKIN: Warm, Dry, normal turgor, no rashes or lesions noted. Course - Re-evaluation Re-evalutation: 04/14/19 nontoxic, well-appearing 28-year-old female presents with generalized weakness, generalized body aches, chest pain, chills, fever, nonproductive cough, headache when she coughs, shortness of breath. Cardiac work-up was initiated. Flu test was also ordered. Lungs clear to auscultation bilaterally. Regular rate and rhythm. PE is otherwise unremarkable. 04/14/19 09:14 Trop neg. BUN 23, Creatinine 1.64, and GFR 46. Review of previous labs - BUN 7, Cr 0.59, GFR > 60 on 11/29/18; previous kidney function labs are within normal limits. 04/14/19 09:43 CXR borderline cardiomegaly otherwise negative. - Vital Signs Vital signs: Temp Pulse Resp BP Pulse Ox 99.8 F 04/14/19 08:00 - Laboratory Result Diagrams: 04/14/19 07:26 04/14/19 07:26 Laboratory results interpreted by me: 04/14/19 04/14/19 07:26 07:26 WBC 12.1 H MCH 26.8 L Lymph % (Auto) 9.4 L [place] % (Auto) 16.4 H Absolute Neuts (auto) 9.0 H Absolute Monos (auto) 2.0 H Sodium 133.9 L BUN 23 H Creatinine 1.64 H Est GFR ( Amer) 46 L Est GFR (MDRD) Non-Af 38 L Calcium 7.8 L Albumin 2.9 L Discharge - Discharge Clinical Impression: SARAH (acute kidney injury), Generalized weakness, Influenza-like illness Condition: Stable Disposition: ADMITTED OBSERVATION Admitting Provider: Amy (Hospitalist) Unit Admitted: Medical Floor Referrals: GUSTABO BAIRES MD [Primary Care Provider] - Follow up as needed
[2019-04-14 09:00] LABS: ALBUMIN 2.9 g/dL (3.5-5.0); ALKALINE PHOSPHATASE 81 U/L (38-126); ANION GAP 8 (5-19); ASPARTATE AMINO TRANSFERASE 22 U/L (14-36); BILIRUBIN,DIRECT 0.1 mg/dL (0.0-0.4); BILIRUBIN,TOTAL 0.6 mg/dL (0.2-1.3); BLOOD UREA NITROGEN 23 mg/dL (7-20); CALCIUM 7.8 mg/dL (8.4-10.2); CARBON DIOXIDE 27 mmol/L (22-30); CHLORIDE 99 mmol/L (98-107); GLUCOSE 97 mg/dL (75-110); POTASSIUM 4.3 mmol/L (3.6-5.0); TOTAL PROTEIN 6.5 g/dL (6.3-8.2)
[2019-04-14 09:12] LABS: ABSOLUTE BASOPHILS # (AUTO) 0.1 10^3/uL (0.0-0.2); ABSOLUTE LYMPHOCYTES (AUTO) 1.1 10^3/uL (0.5-4.7); BASOPHILS % (AUTO) 0.5 % (0-2); HEMATOCRIT 38.4 % (36.0-47.0); LYMPHOCYTES % (AUTO) 9.4 % (13-45); MEAN CORPUSCULAR HEMOGLOBIN 26.8 pg (27.0-33.4); MEAN CORPUSCULAR HGB CONC 33.7 g/dL (32.0-36.0); MEAN CORPUSCULAR VOLUME 80 fl (80-97); MONOCYTES % (AUTO) 16.4 % (3-13); PLATELET COUNT 206 10^3/uL (150-450); RED BLOOD COUNT 4.83 10^6/uL (3.72-5.28); RED CELL DISTRIBUTION WIDTH 13.9 % (11.5-14.0); SEGMENTED NEUTROPHILS % (AUTO) 73.7 % (42-78); TOTAL CELLS COUNTED % (AUTO) 100 %; WHITE BLOOD COUNT 12.1 10^3/uL (4.0-10.5)
--- NOTE | 2019-04-14 09:20 | RADIOLOGY REPORT (SQ) ---
EXAM DESCRIPTION: CHEST 2 VIEWS COMPLETED DATE/TIME: 04/14/2019 9:03 am REASON FOR STUDY: chest pain, cough, fever, dyspnea COMPARISON: None. EXAM PARAMETERS: NUMBER OF VIEWS: two views TECHNIQUE: Digital Frontal and Lateral radiographic views of the chest acquired. RADIATION DOSE: NA LIMITATIONS: none FINDINGS: LUNGS AND PLEURA: No opacities, masses or pneumothorax. No pleural effusion. MEDIASTINUM AND HILAR STRUCTURES: No masses or contour abnormalities. HEART AND VASCULAR STRUCTURES: Borderline cardiomegaly. No evidence for failure. BONES: No acute findings. HARDWARE: None in the chest. OTHER: No other significant finding. IMPRESSION: 1. No significant interval changes since the prior examination dated 11/29/2018. No ac kaw findings. 2. Borderline cardiomegaly suggested. TECHNICAL DOCUMENTATION: JOB ID: [id number] 2010 [employer]- All Rights Reserved Reading location - IP/workstation name: [email or web address]
[2019-04-14] MEDS ORDERED: TEMAZEPAM 7.5 MG CAPSULE PO PRN (10:51)
[2019-04-14] MEDS ORDERED: ONDANSETRON HCL INJ/PF 4 MG/2 ML SDV IV PRN (10:51)
[2019-04-14] MEDS ORDERED: IPRATROPIUM/ALBUTEROL 0.5-2.5 MG/3 ML AMPUL NEB PRN (10:51)
[2019-04-14] MEDS ORDERED: NORMAL SALINE 1000 ML 1,000 ML IV PRN (10:51)
[2019-04-14] MEDS ORDERED: ACETAMINOPHEN 325 MG TABLET PO PRN (10:51)
[2019-04-14] MEDS ORDERED: PROMETHAZINE HCL INJ 25 MG/1 ML VIAL IV PRN (10:51)
[2019-04-14] MEDS ORDERED: METOPROLOL TARTRATE PF/INJ 5 MG/5 ML SDV IV PRN (10:55)
[2019-04-14 11:22] LABS: APPEARANCE,URINE CLOUDY; BILIRUBIN,URINE NEGATIVE (NEGATIVE); COLOR,URINE YELLOW; GLUCOSE, URINE NEGATIVE (NEGATIVE); KETONES,URINE NEGATIVE (NEGATIVE); PROTEIN,URINE >=500 mg/dL (NEGATIVE); URINE SPECIFIC GRAVITY 1.009; UROBILINOGEN,URINE NEGATIVE mg/dL (<2.0)
[2019-04-14] MEDS: DOCUSATE SODIUM 100 MG CAPSULE PO SCH (11:45)
[2019-04-14] MEDS ORDERED: HYDRALAZINE HCL 10 MG TABLET PO SCH ×2 (12:00→18:00)
[2019-04-14] MEDS: OXYCODONE-ACETAMINOPHEN 5-325 MG TABLET PO PRN ×2 (12:30→17:02)
--- NOTE | 2019-04-14 13:12 | EKG REPORT ---
SEVERITY:- BORDERLINE ECG - SINUS RHYTHM BORDERLINE T WAVE ABNORMALITIES : Confirmed by: Orion Bender MD 14-Apr-2019 13:11:38
--- NOTE | 2019-04-14 14:49 | PDOC H&P ---
History of Present Illness Admission Date/PCP: 04/14/19 09:56 GUSTABO BAIRES MD History of Present Illness: BELA SCHMIDT is a 28 year old female past medical history of lupus, right MCA stroke with left-sided residual deficits, CHF, hypertension presenting to ED complaining of generalized body aches, generalized weakness, subjective fever, nonproductive cough, polydipsia, for the last 3 days. Denies any sick contacts or recent travel, nausea, vomiting, diarrhea, constipation new focal neurological deficits, headache, vision changes. In ED he was found to have a fever of 101.2, and noted to have SARAH, with UA positive, and hospitalist was consulted for admission. Past Medical History Cardiac Medical History: Reports: Congestive Heart Failure, Hypertension Pulmonary Medical History: Reports: Pneumonia Psychiatric Medical History: Reports: Depression Past Surgical History Past Surgical History: Reports: Other - Lymph node biopsy Social History Smoking Status: Former Smoker Electronic Cigarette use?: No Family History Family History: Reviewed & Not Pertinent Parental Family History Reviewed: Yes Children Family History Reviewed: Yes Sibling(s) Family History Reviewed.: Yes Medication/Allergy Home Medications: Prednisone [Deltasone 5 mg Tablet] 10 mg PO DAILY 11/29/18 [place]/D3/Mag11/Zinc/Pediatric Critical Care Nurse/Ji/Bor [Caltrate 600+D Plus Tablet] 1 tab PO DAILY 04/14/19 Carvedilol 25 mg PO BID 04/14/19 Duloxetine HCl [Cymbalta] 60 mg PO DAILY 04/14/19 Hydralazine HCl [Apresoline 10 mg Tablet] 10 mg PO TID 04/14/19 Lisinopril [Prinivil 10 mg Tablet] 10 mg PO BID 04/14/19 No115/Iron/Folic Acid [ 19 Chewable Tablet] 2 each PO DAILY 04/14/19 Allergies/Adverse Reactions: hydroxychloroquine [From Plaquenil] Allergy (Verified 04/14/19 07:38) ibuprofen Adverse Reaction (Verified 04/14/19 14:07) Physical Exam Vital Signs: Temp Pulse Resp BP Pulse Ox 100.8 F H 93 18 118/70 93 04/14/19 12:05 04/14/19 12:05 04/14/19 12:05 04/14/19 12:05 04/14/19 12:05 Intake & Output 0304/14/19 04/15/19 06:59 06:59 06:59 Intake Total 1000 Balance 1000 Weight 73.9 kg General appearance: PRESENT: no acute distress, obese, well-developed, well- nourished Head exam: PRESENT: atraumatic, normocephalic Respiratory exam: PRESENT: clear to auscultation wally. ABSENT: rales, rhonchi, wheezes Cardiovascular exam: PRESENT: RRR. ABSENT: diastolic murmur, rubs, systolic murmur GI/Abdominal exam: PRESENT: normal bowel sounds, soft. ABSENT: distended, guarding, mass, organolmegaly, rebound, tenderness Extremities exam: PRESENT: full ROM. ABSENT: calf tenderness, clubbing, pedal edema Neurological exam: PRESENT: alert, awake, oriented to person, oriented to place, oriented to time, oriented to situation, CN II-XII grossly intact, other - Left- sided upper and lower extremity weakness, residual from previous stroke.. ABSENT: motor sensory deficit Skin exam: PRESENT: dry, intact, warm, other - Diffuse macular rash with patient states she has had it for a long time is residual from a skin infection.. ABSENT: cyanosis, rash Results Laboratory Results: 04/14/19 07:26 04/14/19 07:26 04/14/19 04/14/19 04/14/19 07:26 07:26 07:26 WBC 12.1 H RBC 4.83 Hgb 13.0 Hct 38.4 MCV 80 MCH 26.8 L MCHC 33.7 RDW 13.9 Plt Count 206 Seg Neutrophils % 73.7 Sodium 133.9 L Potassium 4.3 Chloride 99 Carbon Dioxide 27 Anion Gap 8 BUN 23 H Creatinine 1.64 H Est GFR ( Amer) 46 L Glucose 97 Calcium 7.8 L Total Bilirubin 0.6 AST 22 Alkaline Phosphatase 81 Total Protein 6.5 Albumin 2.9 L Serum HCG, Qual NEGATIVE Urine Color Urine Appearance Urine pH Ur Specific [place] Urine Protein Urine Glucose (UA) Urine Ketones Urine Blood Urine RBC (Auto) 04/14/19 11:00 WBC RBC Hgb Hct MCV MCH MCHC RDW Plt Count Seg Neutrophils % Sodium Potassium Chloride Carbon Dioxide Anion Gap BUN Creatinine Est GFR ( Amer) Glucose Calcium Total Bilirubin AST Alkaline Phosphatase Total Protein Albumin Serum HCG, Qual Urine Color YELLOW Urine Appearance CLOUDY Urine pH 6.0 Ur Specific [place] 1.009 Urine Protein >=500 H Urine Glucose (UA) NEGATIVE Urine Ketones NEGATIVE Urine Blood LARGE H Urine RBC (Auto) 26 04/14/19 07:26 Troponin I < 0.012 Impressions: Chest X-Ray 04/14/19 08:10 IMPRESSION: 1. No significant interval changes since the prior examination dated 11/29/2018. No acute findings. 2. Borderline cardiomegaly suggested. Assessment and Plan - Diagnosis (1) SARAH (acute kidney injury) Is this a current diagnosis for this admission?: Yes Plan: Prerenal most likely due to low p.o. intake. Admit to floor, cautious volume resuscitation guided by volume status, monitor electrolytes and replace as needed, avoid nephrotoxic meds. If no improvement will consult nephrology. (2) UTI (urinary tract infection) Qualifiers: Urinary tract infection type: acute cystitis Is this a current diagnosis for this admission?: Yes Plan: Likely due to gram-negative rods including E. coli. Broad-spectrum empiric IV antibiotics. Urine culture. Follow-up urine culture. Transition to p.o. antibiotic once culture and sensitivity available. (3) Flu-like symptoms Is this a current diagnosis for this admission?: Yes Plan: Likely viral infection. Haemophilus influenza type a/b negative. Denies any s ick contacts or recent travel. Admit to floor. Supportive measures. (4) History of systemic lupus erythematosus (SLE) Is this a current diagnosis for this admission?: Yes Plan: Does not appear to be an acute flare. Restart home meds. Outpatient PCP and rheumatology follow-up. (5) History of right MCA stroke Is this a current diagnosis for this admission?: Yes Plan: Denies any focal neurological deficits. Mild residual right-sided upper and lower extremity weakness. Resume home meds. Fall and seizure precautions. (6) Hypertension Is this a current diagnosis for this admission?: Yes Plan: Normotensive. Euvolemic. Resume home meds. Adjust meds as needed.
[2019-04-14] MEDS: CEFTRIAXONE 1 GM/D5W RTU 1 GM/50 ML RTUPB IV SCH (15:22)
[2019-04-14] MEDS: CARVEDILOL 12.5 MG TABLET PO SCH (17:01)
[2019-04-14] MEDS: PREDNISONE 10 MG TABLET PO SCH (17:03)
[2019-04-14] MEDS ORDERED: (PENDING PHARMACY ID) (Carvedilol [Carvedilol] 25 MG) PO SCH (18:00)
[2019-04-14] MEDS: HYDRALAZINE HCL 10 MG TABLET PO SCH (22:28)
[2019-04-14] MEDS: FAMOTIDINE 20 MG TABLET PO SCH (22:28)
[2019-04-15] MEDS: HYDRALAZINE HCL 10 MG TABLET PO SCH ×3 (06:16→22:11)
[2019-04-15] MEDS: CARVEDILOL 12.5 MG TABLET PO SCH ×2 (06:17→17:19)
[2019-04-15 06:23] LABS: HEMATOCRIT 37.7 % (36.0-47.0); HEMOGLOBIN 12.4 g/dL (12.0-15.5); MEAN CORPUSCULAR HEMOGLOBIN 26.4 pg (27.0-33.4); MEAN CORPUSCULAR HGB CONC 32.9 g/dL (32.0-36.0); MEAN CORPUSCULAR VOLUME 80 fl (80-97); PLATELET COUNT 218 10^3/uL (150-450); RED BLOOD COUNT 4.69 10^6/uL (3.72-5.28); RED CELL DISTRIBUTION WIDTH 14.2 % (11.5-14.0); WHITE BLOOD COUNT 9.8 10^3/uL (4.0-10.5)
[2019-04-15 06:55] LABS: ANION GAP 10 (5-19); BLOOD UREA NITROGEN 17 mg/dL (7-20); CALCIUM 7.7 mg/dL (8.4-10.2); CARBON DIOXIDE 23 mmol/L (22-30); CHLORIDE 107 mmol/L (98-107); GLUCOSE 86 mg/dL (75-110); POTASSIUM 4.7 mmol/L (3.6-5.0)
[2019-04-15] MEDS: CEFTRIAXONE 1 GM/D5W RTU 1 GM/50 ML RTUPB IV SCH (09:30)
[2019-04-15] MEDS: PREDNISONE 10 MG TABLET PO SCH ×2 (09:30→17:19)
[2019-04-15] MEDS: HYDRALAZINE HCL INJ/PF 20 MG/1 ML SDV IV PRN (09:30)
[2019-04-15] MEDS: DULOXETINE HCL 30 MG CAPSULE.DR PO SCH (09:30)
[2019-04-15] MEDS: FAMOTIDINE 20 MG TABLET PO SCH ×2 (09:30→22:09)
[2019-04-15] MEDS: DOCUSATE SODIUM 100 MG CAPSULE PO SCH (09:31)
[2019-04-15] MEDS: ENOXAPARIN SODIUM INJ 30 MG/0.3 ML DISP.SYRIN SUBCUT SCH (09:31)
--- NOTE | 2019-04-15 09:53 | PDOC PROGRESS REPORT ---
Subjective Progress Note for:: 04/15/19 Subjective:: BELA SCHMIDT is a 28 year old female past medical history of lupus, right MCA stroke with left-sided residual deficits, CHF, hypertension presenting to ED complaining of generalized body aches, generalized weakness, subjective fever, nonproductive cough, polydipsia, for the last 3 days. Denies any sick contacts or recent travel, nausea, vomiting, diarrhea, constipation new focal neurological deficits, headache, vision changes. In ED he was found to have a f ever of 101.2, and noted to have SARAH, with UA positive, and hospitalist was consulted for admission. 04/15/2019. No acute events overnight. Fatigue and generalized pain is improving, patient complaining of having vaginal bleed since yesterday, stating that she is not on her. That this is new for her, denies any fever, chills, nausea, vomiting, diarrhea, constipation or any urinary symptoms. Will consult [facility] for evaluation. Reason For Visit: SARAH Physical Exam Vital Signs: Temp Pulse Resp BP Pulse Ox 98.4 F 75 17 152/108 H 100 04/15/19 07:32 04/15/19 07:32 04/15/19 07:32 04/15/19 07:32 04/15/19 07:32 Intake & Output 04/14/19 04/15/19 04/16/19 06:59 06:59 06:59 Intake Total 2820 1000 Output Total 1325 Balance 1495 1000 Weight 75.4 kg General appearance: PRESENT: no acute distress, well-developed, well-nourished Head exam: PRESENT: atraumatic, normocephalic Respiratory exam: PRESENT: clear to auscultation wally. ABSENT: rales, rhonchi, wheezes Cardiovascular exam: PRESENT: RRR. ABSENT: diastolic murmur, rubs, systolic murmur GI/Abdominal exam: PRESENT: normal bowel sounds, soft. ABSENT: distended, guarding, mass, organolmegaly, rebound, tenderness Extremities exam: PRESENT: full ROM. ABSENT: calf tenderness, clubbing, pedal edema Neurological exam: PRESENT: alert, awake, oriented to person, oriented to place, oriented to time, oriented to situation, CN II-XII grossly intact. ABSENT: motor sensory deficit Results Laboratory Results: 04/15/19 05:29 04/15/19 05:29 04/14/19 04/15/19 04/15/19 11:00 05:29 05:29 WBC 9.8 RBC 4.69 Hgb 12.4 Hct 37.7 MCV 80 MCH 26.4 L MCHC 32.9 RDW 14.2 H Plt Count 218 Sodium 140.1 Potassium 4.7 Chloride 107 Carbon Dioxide 23 Anion Gap 10 BUN 17 Creatinine 0.84 Est GFR ( Amer) > 60 Glucose 86 Calcium 7.7 L Magnesium 2.3 Urine Color YELLOW Urine Appearance CLOUDY Urine pH 6.0 Ur Specific [place] 1.009 Urine Protein >=500 H Urine Glucose (UA) NEGATIVE Urine Ketones NEGATIVE Urine Blood LARGE H Urine RBC (Auto) 26 04/14/19 07:26 Troponin I < 0.012 Impressions: Chest X-Ray 04/14/19 08:10 IMPRESSION: 1. No significant interval changes since the prior examination dated 11/29/2018. No acute findings. 2. Borderline cardiomegaly suggested. Assessment and Plan - Diagnosis (1) SARAH (acute kidney injury) Is this a current diagnosis for this admission?: Yes Plan: Resolved. Prerenal most likely due to low p.o. intake. Monitor volume status, monitor electrolytes and replace as needed, avoid nephrotoxic meds. (2) UTI (urinary tract infection) Qualifiers: Urinary tract infection type: acute cystitis Is this a current diagnosis for this admission?: Yes Plan: Likely due to gram-negative rods including E. coli. Broad-spectrum empiric IV antibiotics. Urine culture. Follow-up urine culture. Transition to p.o. antibiotic once culture and sensiti vity available. (3) Flu-like symptoms Is this a current diagnosis for this admission?: Yes Plan: Likely viral infection. Haemophilus influenza type a/b negative. Denies any sick contacts or recent travel. Admit to floor. Supportive measures. (4) History of systemic lupus erythematosus (SLE) Is this a current diagnosis for this admission?: Yes Plan: Does not appear to be an acute flare. Restart home meds. Outpatient PCP and rheumatology follow-up. (5) History of right MCA stroke Is this a current diagnosis for this admission?: Yes Plan: Denies any focal neurological deficits. Mild residual right-sided upper and lower extremity weakness. Resume home meds. Fall and seizure precautions. (6) Hypertension Is this a current diagnosis for this admission?: Yes Plan: Normotensive. Euvolemic. Resume home meds. Adjust meds as needed. (7) Vaginal bleeding Is this a current diagnosis for this admission?: Yes Plan: Beta-hCG negative. Platelets WNL. No nosebleeds, gingival bleed or hemoptysis. Patient is not on her period. We will consult [facility] for evaluation.
[2019-04-15] MEDS ORDERED: LISINOPRIL 10 MG TABLET PO SCH (10:45)
[2019-04-15] MEDS: LISINOPRIL 10 MG TABLET PO SCH ×2 (11:52→22:10)
--- NOTE | 2019-04-15 12:21 | RADIOLOGY REPORT (SQ) ---
EXAM DESCRIPTION: U/S NON-OB PELVIS TV W/O DOP COMPLETED DATE/TIME: 04/15/2019 11:34 am REASON FOR STUDY: vaginal bleeding, 28yo with vaginal spotting COMPARISON: None. TECHNIQUE: Dynamic and static grayscale images acquired of the pelvis via transvaginal approach and recorded on PACS. Additional selected color Doppler and spectral images recorded. LIMITATIONS: None. FINDINGS: UTERUS: Contour normal. No mass. ENDOMETRIAL STRIPE: No focal or generalized thickening. No masses. CERVIX: No nabothian cysts. RIGHT OVARY AND DOPPLER: Normal size. Irregular hypoechoic fluid collection measuring 1.6 x 2.5 cm. Faint internal debris. Normal arterial vascular flow without evidence for torsion. LEFT OVARY AND DOPPLER: Normal size. No worrisome masses. Normal arterial vascular flow without evide nce for torsion. FREE FLUID: Free fluid in the cul-de-sac and right adnexa. OTHER: No other significant finding. MEASUREMENTS: UTERUS: 3.1 x 3.1 x 6.5 cm. ENDOMETRIAL STRIPE: 6 mm. RIGHT OVARY: 2.3 x 3.1 x 3.4 cm. LEFT OVARY: 1.6 x 1.8 x 2.3 cm. IMPRESSION: SLIGHTLY COMPLEX CYST IN THE RIGHT OVARY CONTAINING SOME INTERNAL DEBRIS. THERE IS SOME WHAT IRREGULAR CONTOUR AND THERE IS ALSO SOME FREE FLUID IN THIS SIDE OF THE PELVIS, SUGGESTING THAT THERE MAY HAVE BEEN RECENT RUPTURE OF THE CYST. NO OTHER SIGNIFICANT FINDINGS. TECHNICAL DOCUMENTATION: JOB ID: [id number] 2010 [facility]- All Rights Reserved Rev-06/29 Reading location - IP/workstation name: [email or web address]
--- NOTE | 2019-04-15 14:42 | PDOC CONSULTATION ---
Consultation Consult Date: 04/15/19 Attending physician:: NELLIE REYES Provider Consulted: [facility] Consult reason:: vaginal bleeding History of Present Illness Admission Date/PCP: 04/14/19 09:56 GUSTABO BAIRES MD Patient complains of: vaginal bleeding since yesterday History of Present Illness: BELA SCHMIDT is a 28 year old female with multiple medical problems including Lupus on immunosuppressants. 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 No PCM and reports that she has never had a pap smear. She reports that she had an LMP 03/26/2019. When asked regarding when her February menses she states it was on the 12th too - always regular. She reports that she is having dime - quarter size clots when she voids. Reports that she has not been sexually active in some time. Denies postcoital bleeding. Reports that she is not on contraceptive - just doesnt have sex. Reviewed condom use for contraception until she can be seen in the office for more appropriate contraceptives based on her medical needs. Past Medical History LMP: 03/26/19 Gynecological Infection: Yes - h/o trich Cardiac Medical History: Reports: Congestive Heart Failure, Hypertension Pulmonary Medical History: Reports: Pneumonia Psychiatric Medical History: Reports: Depression Social History Information Source: Patient Lives with: Alone Smoking Status: Former Smoker Electronic Cigarette use?: No Frequency of Alcohol Use: None Hx Recreational Drug Use: No - denies Hx Prescription Drug Abuse: No - Advance Directive Resuscitation Status: Full Code Family History Family History: Reviewed & Not Pertinent Parental Family History Reviewed: No Children Family History Reviewed: NA Sibling(s) Family History Reviewed.: NA Medication/Allergy Home Medications: Prednisone [Deltasone 5 mg Tablet] 10 mg PO DAILY 11/29/18 Ludin/D3/Mag11/Zinc/Bag Shop Worker/Ji/Bor [Caltrate 600+D Plus Tablet] 1 tab PO DAILY 04/14/19 Carvedilol 25 mg PO BID 04/14/19 Duloxetine HCl [Cymbalta] 60 mg PO DAILY 04/14/19 Hydralazine HCl [Apresoline 10 mg Tablet] 10 mg PO TID 04/14/19 Lisinopril [Prinivil 10 mg Tablet] 10 mg PO BID 04/14/19 No115/Iron/Folic Acid [ 19 Chewable Tablet] 2 each PO DAILY 04/14/19 Allergies/Adverse Reactions: hydroxychloroquine [From Plaquenil] Allergy (Verified 04/14/19 07:38) ibuprofen Adverse Reaction (Verified 04/14/19 14:07) Review of Systems Constitutional: ABSENT: chills, fever(s), headache(s), weight gain, weight loss Cardiovascular: ABSENT: chest pain, dyspnea on exertion, edema, orthropnea, palpitations Respiratory: ABSENT: cough, hemoptysis Gastrointestinal: ABSENT: abdominal pain, constipation, diarrhea, hematemesis, hematochezia, nausea, vomiting Neurological: ABSENT: abnormal gait, abnormal speech, confusion, dizziness, focal weakness, syncope Psychiatric: ABSENT: anxiety, depression, homidical ideation, suicidal ideation Physical Exam - Physical Exam Vital Signs: Temp Pulse Resp BP Pulse Ox 101.4 F H 72 16 137/99 H 97 04/15/19 11:38 04/15/19 12:08 04/15/19 12:08 04/15/19 11:38 04/15/19 12:08 Intake & Output 04/14/19 04/15/19 04/16/19 06:59 06:59 06:59 Intake Total 2820 1050 Output Total 1325 Balance 1495 1050 Weight 75.4 kg General appearance: PRESENT: no acute distress, well-developed, well-nourished Head exam: PRESENT: atraumatic, normocephalic Respiratory exam: PRESENT: clear to auscultation wally Cardiovascular exam: PRESENT: RRR. ABSENT: diastolic murmur, rubs, systolic murmur Pulses: PRESENT: normal dorsalis pedis pul, +2 pedal pulses bilateral Vascular exam: PRESENT: normal capillary refill GI/Abdominal exam: PRESENT: normal bowel sounds, soft. ABSENT: distended, guarding, mass, organolmegaly, rebound, tenderness Rectal exam: PRESENT: deferred Extremities exam: PRESENT: full ROM. ABSENT: calf tenderness, clubbing, pedal edema Neurological exam: PRESENT: alert, awake, oriented to person, oriented to place, oriented to time, oriented to situation, CN II-XII grossly intact. ABSENT: motor sensory deficit Psychiatric exam: PRESENT: appropriate affect, normal mood. ABSENT: homicidal ideation, suicidal ideation Result Laboratory Results: 04/15/19 05:29 04/15/19 05:29 04/15/19 04/15/19 05:29 05:29 WBC 9.8 RBC 4.69 Hgb 12.4 Hct 37.7 MCV 80 MCH 26.4 L MCHC 32.9 RDW 14.2 H Plt Count 218 Sodium 140.1 Potassium 4.7 Chloride 107 Carbon Dioxide 23 Anion Gap 10 BUN 17 Creatinine 0.84 Est GFR ( Amer) > 60 Glucose 86 Calcium 7.7 L Magnesium 2.3 04/14/19 07:26 Troponin I < 0.012 Impressions: Chest X-Ray 04/14/19 08:10 IMPRESSION: 1. No significant interval changes since the prior examination dated 11/29/2018. No acute findings. 2. Borderline cardiomegaly suggested. Transvaginal US 04/15/19 10:40 IMPRESSION: SLIGHTLY COMPLEX CYST IN THE RIGHT OVARY CONTAINING SOME INTERNAL DEBRIS. THERE IS SOMEWHAT IRREGULAR CONTOUR AND THERE IS ALSO SOME FREE FLUID IN THIS SIDE OF THE PELVIS, SUGGESTING THAT THERE MAY HAVE BEEN RECENT RUPTURE OF THE CYST. NO OTHER SIGNIFICANT FINDINGS. Status: Imported from PACS Assessment & Plan - Diagnosis (1) Ovarian cyst Qualifiers: Laterality: right Qualified Code(s): N83.201 - Unspecified ovarian cyst, right side Is this a current diagnosis for this admission?: Yes Plan: poss hemorrhagic - reviewed need for evaluation and repeat US in 6-8wks. (2) Vaginal bleeding Is this a current diagnosis for this admission?: Yes Plan: Beta-hCG negative. Platelets WNL. No nosebleeds, gingival bleed or hemoptysis. reviewed with patient regarding on immunosuppressants and never had a pap smear and if HPV - could lead to cervical dysplasia and possibly cervical cancer and that could be cause of vaginal bleeding. Unfortunately the patient is in a non treatment specialist bed and exam is limited. BME unremarkable except bladder is full. Pt has not voided since this am. Need Dirty catch Urine for GC/Chlam. Wet prep done. Reviewed US with patient and benign - right ovarian cyst should be followed up on. No e/o cause of bleeding on US. Pt did have trich in the past so reviewed STDs can be a cause of vaginal bleeding as well. Discharge pending Wet prep and GC/Chlam results. She was transferred via phone to [facility] office and appt was made to f/u for pap/EMBx and contraception management. Reviewed again with patient the importance of f/u. Recommended patient have progesterone daily to help cause cessation of bleeding for now - discharge to home with meds per Dr. Reyes and in addition rx for progesterone sent eRx by myself - Time Time Spent: 30 to 50 Minutes Critical Time spent with patient: 15-24 minutes Medications reviewed and adjusted accordingly: Yes Anticipated discharge: Home - Inpatient Certification Based on my medical assessment, after consideration of the patient's comorbidities, presenting symptoms, or acuity I expect that the services needed warrant INPATIENT care.: No I certify that my determination is in accordance with my understanding of Medicare's requirements for reasonable and necessary INPATIENT services [42 CFR 412.3e].: No
[2019-04-15 14:59] LABS: BACTERIA (WET MOUNT) 3+ BACTERIA SEEN; RBCS (WET MOUNT) 4+ RBCS SEEN; T.VAGINALIS (WET MOUNT) NO TRICHOMONAS SEEN; WBCS (WET MOUNT) NO WBCS SEEN; YEAST (WET MOUNT) NO YEAST SEEN
[2019-04-15 16:36] LABS: CHLAM PCR NOT DETECTED (NOT DETECT)
[2019-04-16] MEDS: HYDRALAZINE HCL INJ/PF 20 MG/1 ML SDV IV PRN (06:36)
[2019-04-16] MEDS: CARVEDILOL 12.5 MG TABLET PO SCH (06:37)
[2019-04-16] MEDS: HYDRALAZINE HCL 10 MG TABLET PO SCH (06:37)
[2019-04-16 09:00] VITALS: BP 130/93
[2019-04-16] MEDS: DULOXETINE HCL 30 MG CAPSULE.DR PO SCH (10:05)
[2019-04-16] MEDS: LISINOPRIL 10 MG TABLET PO SCH ×2 (10:05→10:08)
[2019-04-16] MEDS: DOCUSATE SODIUM 100 MG CAPSULE PO SCH (10:06)
[2019-04-16] MEDS: PREDNISONE 10 MG TABLET PO SCH (10:07)
[2019-04-16] MEDS: CEFTRIAXONE 1 GM/D5W RTU 1 GM/50 ML RTUPB IV SCH (10:07)
[2019-04-16] MEDS: ENOXAPARIN SODIUM INJ 30 MG/0.3 ML DISP.SYRIN SUBCUT SCH (10:07)
[2019-04-16] MEDS: FAMOTIDINE 20 MG TABLET PO SCH (10:07)
--- NOTE | 2019-04-20 14:04 | PDOC DISCHARGE SUMMARY ---
Impression - Admit/DC Date/PCP Admission Date/Primary Care Provider: 04/14/19 09:56 GUSTABO BAIRES MD Discharge Date: 04/16/19 - Discharge Diagnosis (1) SARAH (acute kidney injury) Is this a current diagnosis for this admission?: Yes (2) UTI (urinary tract infection) Is this a current diagnosis for this admission?: Yes (3) Flu-like symptoms Is this a current diagnosis for this admission?: Yes (4) History of systemic lupus erythematosus (SLE) Is this a current diagnosis for this admission?: Yes (5) History of right MCA stroke Is this a current diagnosis for this admission?: Yes (6) Hypertension Is this a current diagnosis for this admission?: Yes (7) Vaginal bleeding Is this a current diagnosis for this admission?: Yes - Additional Information Resuscitation Status: Full Code Discharge Diet: As Tolerated Discharge Activity: Activity As Tolerated Referrals: [facility] [Provider Group] - 04/23/19 8:15 am [facility] MD [ACTIVE STAFF] - 04/17/19 2:30 pm () Prescriptions: Cephalexin Monohydrate [Keflex 500 mg Capsule] 500 mg PO TID 15 Days #3 capsule Fosfomycin Tromethamine [Monurol 3 gm Packet] 3 gm PO Q72HP PRN 9 Days #3 packet PRN Reason: Medroxyprogesterone Acetate [Provera] 10 mg PO DAILY 10 Days #10 tablet Home Medications: Prednisone [Deltasone 5 mg Tablet] 10 mg PO DAILY 11/29/18 Ludin/D3/Mag11/Zinc/Impregnator/Ji/Bor [Caltrate 600+D Plus Tablet] 1 tab PO DAILY 04/14/19 Carvedilol 25 mg PO BID 04/14/19 Duloxetine HCl [Cymbalta] 60 mg PO DAILY 04/14/19 Hydralazine HCl [Apresoline 10 mg Tablet] 10 mg PO TID 04/14/19 Lisinopril [Prinivil 10 mg Tablet] 10 mg PO BID 04/14/19 No115/Iron/Folic Acid [ 19 Chewable Tablet] 2 each PO DAILY 04/14/19 Medroxyprogesterone Acetate [Provera] 10 mg PO DAILY 10 Days #10 tablet 04/15/19 Cephalexin Monohydrate [Keflex 500 mg Capsule] 500 mg PO TID 15 Days #3 capsule 04/16/19 Fosfomycin Tromethamine [Monurol 3 gm Packet] 3 gm PO Q72HP PRN 9 Days #3 packet 04/17/19 History of Present Illiness History of Present Illness: BELA SCHMIDT is a 28 year old female past medical history of lupus, right MCA stroke with left-sided residual deficits, CHF, hypertension presenting to ED complaining of generalized body aches, generalized weakness, subjective fever, nonproductive cough, polydipsia, for the last 3 days. Denies any sick contacts or recent travel, nausea, vomiting, diarrhea, constipation new focal neurological deficits, headache, vision changes. In ED he was found to have a fever of 101.2, and noted to have SARAH, with UA positive, and hospitalist was consulted for admission. Hospital Course Hospital Course: (1) SARAH (acute kidney injury) Resolved. Prerenal most likely due to low p.o. intake. Was admitted floor. Start on NS. Avoid nephrotoxic meds. Monitored electrolytes. Advised to avoid nephrotoxic meds in the future. Outpatient PCP and nephrology follow-up recommended. (2) UTI (urinary tract infection) Initially thought to be due to E. coli but final result not available at time of discharge. Patient notified that urine culture is not finalized and it would be better if she stayed in the bottle until the cultures are finalized. Patient very anxious to leave, stating that she could not miss her job. Was sent home on empiric Keflex, but patient was told if culture results are finalized and is growing something which is not sensitive to Keflex she will be notified. The following day I was notified by microbiology that patient was growing ESBL. I will contact Dr. Salguero infectious disease specialist and as per her recommendation sent a prescription for fosfomycin. Patient was called and notified about urine culture being positive for ESBL. Was told that a new prescription for fosfomycin was sent and she was strongly advised to fiber picker her new prescription. Patient voiced understanding and assured me that she will make sure to fiber picker her new prescription. (3) Flu-like symptoms Moderate improvement. Haemophilus influenza type a/b negative. Denies any sick contacts or recent travel. Admitted to floor. Started on supportive measures. (4) History of systemic lupus erythematosus (SLE) Did not appear to be an acute flare. Restarted home meds. Outpatient PCP and rheumatology follow-up. (5) History of right MCA stroke Denies any focal neurological deficits. Mild residual right-sided upper and lower extremity weakness. Restarted meds. Fall and seizure precautions implemented. (6) Hypertension Normotensive. Euvolemic. Start home meds. Outpatient PCP follow-up recommended. (7) Vaginal bleeding Beta-hCG negative. Platelets WNL. No nosebleeds, gingival bleed or hemoptysis. Patient is not on her period. [facility] was consulted. And was determined that patient might be having her menstrual. STD screen was not done. An appointment was made for patient to follow-up with LABORER [employer] for. Please see [facility] report. Physical Exam Vital Signs: Temp Pulse Resp BP Pulse Ox 98.3 F 82 16 130/93 H 100 04/16/19 09:34 04/16/19 09:34 04/16/19 09:34 04/16/19 09:34 04/16/19 09:34 General appearance: PRESENT: no acute distress, well-developed, well-nourished Head exam: PRESENT: atraumatic, normocephalic Respiratory exam: PRESENT: clear to auscultation wally. ABSENT: rales, rhonchi, wheezes Pulses: PRESENT: normal dorsalis pedis pul GI/Abdominal exam: PRESENT: normal bowel sounds, soft. ABSENT: distended, guarding, mass, organolmegaly, rebound, tenderness Neurological exam: PRESENT: alert, awake, oriented to person, oriented to place, oriented to time, oriented to situation, CN II-XII grossly intact, motor sensory deficit - Residual left upper and lower extremity weakness. No new focal neurological deficits. Results Laboratory Results: WBC 9.8 10^3/uL (4.0-10.5) 04/15/19 05:29 RBC 4.69 10^6/uL (3.72-5.28) 04/15/19 05:29 Hgb 12.4 g/dL (12.0-15.5) 04/15/19 05:29 Hct 37.7 % (36.0-47.0) 04/15/19 05:29 MCV 80 fl (80-97) 04/15/19 05:29 MCH 26.4 pg (27.0-33.4) L 04/15/19 05:29 MCHC 32.9 g/dL (32.0-36.0) 04/15/19 05:29 RDW 14.2 % (11.5-14.0) H 04/15/19 05:29 Plt Count 218 10^3/uL (150-450) 04/15/19 05:29 Lymph % (Auto) 9.4 % (13-45) L 04/14/19 07:26 [place] % (Auto) 16.4 % (3-13) H 04/14/19 07:26 Eos % (Auto) 0.0 % (0-6) 04/14/19 07:26 Baso % (Auto) 0.5 % (0-2) 04/14/19 07:26 Absolute Neuts (auto) 9.0 10^3/uL (1.7-8.2) H 04/14/19 07:26 Absolute Lymphs (auto) 1.1 10^3/uL (0.5-4.7) 04/14/19 07:26 Absolute Monos (auto) 2.0 10^3/uL (0.1-1.4) H 04/14/19 07:26 Absolute Eos (auto) 0.0 10^3/uL (0.0-0.6) 04/14/19 07:26 Absolute Basos (auto) 0.1 10^3/uL (0.0-0.2) 04/14/19 07:26 Seg Neutrophils % 73.7 % (42-78) 04/14/19 07:26 Sodium 140.1 mmol/L (137-145) 04/15/19 05:29 Potassium 4.7 mmol/L (3.6-5.0) 04/15/19 05:29 Chloride 107 mmol/L (98-107) 04/15/19 05:29 Carbon Dioxide 23 mmol/L (22-30) 04/15/19 05:29 Anion Gap 10 (5-19) 04/15/19 05:29 BUN 17 mg/dL (7-20) 04/15/19 05:29 Creatinine 0.84 mg/dL (0.52-1.25) 04/15/19 05:29 Est GFR ( Amer) > 60 (>60) 04/15/19 05:29 Est GFR (MDRD) Non-Af > 60 (>60) 04/15/19 05:29 Glucose 86 mg/dL (75-110) 04/15/19 05:29 Calcium 7.7 mg/dL (8.4-10.2) L 04/15/19 05:29 Magnesium 2.3 mg/dL (1.6-2.3) 04/15/19 05:29 Total Bilirubin 0.6 mg/dL (0.2-1.3) 04/14/19 07:26 Direct Bilirubin 0.1 mg/dL (0.0-0.4) 04/14/19 07:26 Neonat Total Bilirubin Not Reportable 04/14/19 07:26 Neonat Direct Bilirubin Not Reportable 04/14/19 07:26 Neonat Indirect Bili Not Reportable 04/14/19 07:26 AST 22 U/L (14-36) 04/14/19 07:26 ALT 11 U/L (<35) 04/14/19 07:26 Alkaline Phosphatase 81 U/L (38-126) 04/14/19 07:26 Troponin I < 0.012 ng/mL 04/14/19 07:26 Total Protein 6.5 g/dL (6.3-8.2) 04/14/19 07:26 Albumin 2.9 g/dL (3.5-5.0) L 04/14/19 07:26 Serum HCG, Qual NEGATIVE (NEGATIVE) 04/14/19 07:26 Urine Color YELLOW 04/14/19 11:00 Urine Appearance CLOUDY 04/14/19 11:00 Urine pH 6.0 (5.0-9.0) 04/14/19 11:00 Ur Specific [place] 1.009 04/14/19 11:00 Urine Protein >=500 mg/dL (NEGATIVE) H 04/14/19 11:00 Urine Glucose (UA) NEGATIVE mg/dL (NEGATIVE) 04/14/19 11:00 Urine Ketones NEGATIVE mg/dL (NEGATIVE) 04/14/19 11:00 Urine Blood LARGE (NEGATIVE) H 04/14/19 11:00 Urine Nitrite (Reflex) POSITIVE (NEGATIVE) H 04/14/19 11:00 Urine Bilirubin NEGATIVE (NEGATIVE) 04/14/19 11:00 Urine Urobilinogen NEGATIVE mg/dL (<2.0) 04/14/19 11:00 Leukocyte Esterase Rfl LARGE (NEGATIVE) H 04/14/19 11:00 Urine RBC (Auto) 26 /HPF 04/14/19 11:00 Urine Bacteria (Auto) 1+ /HPF 04/14/19 11:00 Urine WBC (Reflex) > 182 /HPF 04/14/19 11:00 Urine WBC Clumps MANY /HPF 04/14/19 11:00 Squamous Epi Cells Auto 11 /HPF 04/14/19 11:00 Urine Mucus (Auto) RARE /LPF 04/14/19 11:00 Urine Ascorbic Acid NEGATIVE (NEGATIVE) 04/14/19 11:00 Bacteria (Wet Prep) 3+ BACTERIA SEEN 04/15/19 14:00 Trichomonas (Wet Prep) NO TRICHOMONAS SEEN 04/15/19 14:00 Vaginal WBC NO WBCS SEEN 04/15/19 14:00 Vaginal RBC 4+ RBCS SEEN 04/15/19 14:00 Vaginal Yeast NO YEAST SEEN 04/15/19 14:00 Chlamydia DNA (PCR) NOT DETECTED (NOT DETECT) 04/15/19 14:48 Influenza A (Rapid) NEGATIVE (NEGATIVE) 04/14/19 07:26 Influenza B (Rapid) NEGATIVE (NEGATIVE) 04/14/19 07:26 N.gonorrhoeae DNA (PCR) NOT DETECTED (NOT DETECT) 04/15/19 14:48 04/14/19 07:26 Troponin I < 0.012 Impressions: Chest X-Ray 04/14/19 08:10 IMPRESSION: 1. No significant interval changes since the prior examination dated 11/29/2018. No acute findings. 2. Borderline cardiomegaly suggested. Transvaginal US 04/15/19 10:40 IMPRESSION: SLIGHTLY COMPLEX CYST IN THE RIGHT OVARY CONTAINING SOME INTERNAL DEBRIS. THERE IS SOMEWHAT IRREGULAR CONTOUR AND THERE IS ALSO SOME FREE FLUID IN THIS SIDE OF THE PELVIS, SUGGESTING THAT THERE MAY HAVE BEEN RECENT RUPTURE OF THE CYST. NO OTHER SIGNIFICANT FINDINGS. Stroke Is this a Stroke Patient?: No Acute Heart Failure - Is this a Heart Failure Patient?: No
== END 2019-04-16 10:25 | disposition home or self-care (01) ==
LOC: ER 07:04 → EH 09:56 → 5 12:03
PROVIDERS: ADMIT Internal Medicine; ATTEND Internal Medicine
DX: N17.9 Acute kidney failure, unspecified (principal); N30.00 Acute cystitis without hematuria; Z16.12 Extended spectrum beta lactamase (ESBL) resistance; I11.0 Hypertensive heart disease with heart failure; I50.9 Heart failure, unspecified; R50.9 Fever, unspecified; R53.1 Weakness; R05 Cough; R63.1 Polydipsia; N93.9 Abnormal uterine and vaginal bleeding, unspecified; M32.9 Systemic lupus erythematosus, unspecified; I69.354 Hemiplegia and hemiparesis following cerebral infarction affecting left non-dominant side; N83.201 Unspecified ovarian cyst, right side; R21 Rash and other nonspecific skin eruption; B94.8 Sequelae of other specified infectious and parasitic diseases; E66.9 Obesity, unspecified; Z79.899 Other long term (current) drug therapy; Z86.19 Personal history of other infectious and parasitic diseases; Z87.891 Personal history of nicotine dependence
CPT/HCPCS: 93005; 99285; 96361; 96374; 36415 ×2; 87040; 87086; 87210; 83735; 84703; 85025; 85027; 87088; 80048; 80053; 81001; 84484; 87186; 87491; 87591; 87804; 71046; 76830; 93010; G0378 ×4; J3490 ×5; J0360 ×2; J2270; J7512 ×2; J7030; J7040; J0696 ×2

== ENCOUNTER → 2019-06-19 | Outpatient (CLI) | payer MEDICAID ==
--- NOTE | 2019-06-19 16:03 | RADIOLOGY REPORT (SQ) ---
EXAM DESCRIPTION: U/S RETROPERITON (RENAL/AORTA) IMAGES COMPLETED DATE/TIME: 06/19/2019 3:45 pm REASON FOR STUDY: R80.9 PROTEINURIA, UNSPECIFIED R80.9 PROTEINURIA, UNSPECIFIED COMPARISON: None. TECHNIQUE: Dynamic and static grayscale images acquired of the kidneys and bladder and recorded on P ACS. Additional selected color Doppler and spectral images recorded. LIMITATIONS: None. FINDINGS: RIGHT KIDNEY: Normal size. Normal echogenicity. No solid or suspicious masses. No hydronep hrosis. No calcifications. LEFT KIDNEY: Normal size. Normal echogenicity. No solid or suspicious masses. No hydronephrosis. No calcifications. BLADDER: No masses. OTHER FINDINGS: No other significant finding. IMPRESSION: NORMAL RENAL AND BLADDER ULTRASOUND. TECHNICAL DOCUMENTATION: JOB ID: [id number] 2010 [employer]- All Rights Reserved Reading location - IP/workstation name: [email or web address]
== END ==
LOC: RAD 14:36
PROVIDERS: ATTEND Internal Medicine Nephrology
DX: R80.9 Proteinuria, unspecified (principal); M32.10 Systemic lupus erythematosus, organ or system involvement unspecified
CPT/HCPCS: 76770

== ENCOUNTER 2019-07-18 01:35 | Emergency (ER) | payer MEDICAID ==
[2019-07-18 01:52] VITALS: BP 173/131
== END 2019-07-18 02:40 | disposition left against medical advice (07) ==
LOC: ER 01:35
DX: Z53.21 Procedure and treatment not carried out due to patient leaving prior to being seen by health care provider (principal)

== ENCOUNTER 2020-01-15 11:46 | Emergency (ER) | payer MEDICARE, MEDICAID ==
[2020-01-15 12:08] VITALS: BP 124/58
--- NOTE | 2020-01-15 13:17 | ER Document Report ---
ED General - General Chief Complaint: Sinus Congestion Stated Complaint: COUGH,CONGESTION,ABDOMINAL PAIN Primary Care Provider: DALJIT GONZALES MD [Primary Care Provider] - Follow up as needed TRAVEL OUTSIDE OF THE [place] IN LAST 30 DAYS: No - HPI Notes: Chief Complaint: Sinus congestion Historian: History obtained from patient HPI: This is a 29-year-old female presents to the ER with 4 days of sinus congestion, cough. Patient also says that she believes she is down 7 weeks based on a home urine test. Patient has cough is productive with yellow sputum. She has noticed small amount of streaking blood in her sputum yesterday. She denies fever, chills, sore throat, shortness of breath, nausea vomiting diarrhea, abdominal pain, vaginal bleeding. Patient does not have any smell or taste due to sinus congestion. Patient is adamant that she does not have Covid. She says she works from home and is not exposed to anyone. Patient is concerned she may have pneumonia. No treatments tried. Patient says she has a history of lupus and takes medication for this but does not remember the name. She has no history of PE or DVT. Eyes lower leg swelling or pain. Denies pleuritic chest pain. ROS: Constitutional: no fevers. HEENT: Positive sinus congestion. CV: no chest pain or palpitations. Resp: Positive cough. No shortness of breath GI: no abdominal pain, or n/v/d. : no dysuria, hematuria, or incont. MSK: no back pain, no joint swelling/redness. Skin: no rashes or itching. Neuro: no seizures, weakness, numbness, or confusion. Hematological: no ecchymosis or easy bleeding. Endocrine: no polyuria/polydipsia, no heat/cold intolerance. Psych: no SI/HI, AH/VH or memory loss. PMHx: Reviewed and agree as charted by RN. PSHx: Reviewed and agree as charted by RN. SOCHx: Reviewed and agree as charted by RN. FHX: No significant familial comorbid conditions directly related to patient complaint Current Medications: Reviewed and agree with the patient medications as charted by the RN. Allergies: Reviewed and agree with the listed allergies as charted by the RN Physical Exam: Vitals: Reviewed in chart as documented by RN. General: Alert and in NAD. Head: Normocephalic; atraumatic Eyes: PERRLA, Conjunctivae clear sclerae non-icteric bilat ENT: no soft palate swelling or uvular deviation. Tonsils 1+ and symmetrical no erythema, exudate. nose- thin yellow mucous to bilat nares. no sinus tenderness Neck: trachea midline, no unilateral swelling/tenderness/lymphadenopathy CV: RRR, no M/R/G; symmetric distal pulses Resp: respirations even and unlabored, rhonchi to bilateral mid field. GI: abd soft and nondistended. NTTP. normal BS. no masses/HSM. no CVAT bilat. MSK: FROM of all extremities. No midline CTL spine tenderness/deformity Skin: warm, moist, good turgor. no rash/lesions Neuro: Alert and oriented X 4. following CN 2-12 intact. no unilateral weakness/numbness Psych: No SI/HI or AH/VH. ED Results: Medical Decision-Making: Medical Decision-making/Differential Diagnosis: Consider various etiologies including but not limited to COVID, CAP, bronchitis, URI LRI, PE- unlikely, viral syndrome, strep pharyngitis, viral pharyngitis, other pharyngitis, abebe-tonsillar abscess (unlikely), retropharyngeal abscess (unlikely), Acute Suppurative Otitis media, otalgia, upper respiratory infection, viral syndrome, bronchitis, sinusitis, ect Plan-symptoms likely related to infectious process. I offered and encourage patient to get Covid testing due to her multiple symptoms consistent with Covid. Patient declines. She is not hypoxic and appears comfortable. PE is unlikely given no patient had some mild blood streaking in her sputum and is newly . She is not tachycardic nor hypoxic she is having no current chest pains or pleuritic pleuritic pains. She has no history of PE or DVT and no other risk factors. D-dimer likely be nonbeneficial since patient is . EKG reviewed by ER physician and myself. Overall similar to prior, she does appear to have first-degree AV block which is new. She has no signs of right heart strain or classic patterns indicating possible PE. I had an extensive succussion with the patient regarding signs symptoms to monitor at home that would warrant a return visit to the ER. I will empirically treat patient with a Z-Elias due to her being immunocompromised due to her lupus medications and history of CAP. She is to have close follow-up with her PCP for recheck. Strict return factors were discussed regarding worsening chest pain or shortness of breath and is also to follow-up with her OB. Care was discussed with Dr. Zaman, ER attending, she agrees with plan of care. This course of action was discussed with the patient and/or family. They were amenable to this, verbalized understanding, and were without further questions. Diagnosis: URI Condition: stable Disposition: discharge - Related Data Allergies/Adverse Reactions: ibuprofen Adverse Reaction (Verified 01/15/20 12:17) Past Medical History - Social History Smoking Status: Never Smoker Frequency of alcohol use: None Drug Abuse: None Family History: Reviewed & Not Pertinent Patient has homicidal ideation: No - Past Medical History Cardiac Medical History: Reports: Hx Congestive Heart Failure, Hx Hypertension Pulmonary Medical History: Reports: Hx Pneumonia Neurological Medical History: Reports: Hx Cerebrovascular Accident - 2018 Renal/ Medical History: Denies: Hx Peritoneal Dialysis Psychiatric Medical History: Reports: Hx Depression Past Surgical History: Reports: Other - Lymph node biopsy Physical Exam - Vital signs Vitals: Temp 97.7 F 01/15/20 12:00 Course - Vital Signs Vital signs: Temp Pulse Resp BP Pulse Ox 97.7 F 85 20 124/58 L 100 01/15/20 12:06 01/15/20 12:06 01/15/20 12:06 01/15/20 12:06 01/15/20 12:06 - EKG Interpretation by [facility] EKG shows normal: Sinus rhythm Rate: Normal - NSR- rate 85. ID 212- 1st degree AV block- new. borderline LAD, NSST changes When compared to previous EKG there are: Changes noted - NSR- rate 85. borderline LAD, ID 212- first degree AV block- new. QTc 452. NSST changes. ECG was reviewed by and ER physician. Discharge - Discharge Clinical Impression: URI (upper respiratory infection) Condition: Stable Disposition: HOME, SELF-CARE Instructions: Upper Respiratory Illness ([facility]) Additional Instructions: Follow-up with your primary care doctor in the next 2 to 3 days for recheck. Complete entire course of antibiotics. Consider getting Covid test has been of your symptoms are consistent with Covid. May take Tylenol for pain or fever. Plenty of fluids stay hydrated. Return to the ER if your condition worsens especially if you have chest pains or worsening shortness of breath. Prescriptions: Azithromycin [Zithromax 250 mg Tablet] 250 mg PO ASDIR #6 tablet Forms: Return to Work Referrals: DALJIT GONZALES MD [Primary Care Provider] - Follow up as needed
--- NOTE | 2020-01-15 17:50 | EKG REPORT ---
SEVERITY:- ABNORMAL ECG - SINUS RHYTHM FIRST DEGREE AV BLOCK BORDERLINE LEFT AXIS DEVIATION NONSPECIFIC T ABNORMALITIES, INFERIOR LEADS LEAD LOSS II : Confirmed by: Talha Licea MD 15-Jan-2020 17:49:43
== END 2020-01-15 14:02 | disposition home or self-care (01) ==
LOC: ER 11:46
DX: O99.511 Diseases of the respiratory system complicating pregnancy, first trimester (principal); J06.9 Acute upper respiratory infection, unspecified; O26.891 Other specified pregnancy related conditions, first trimester; R09.81 Nasal congestion; R05 Cough; R10.9 Unspecified abdominal pain; O99.411 Diseases of the circulatory system complicating pregnancy, first trimester; I11.0 Hypertensive heart disease with heart failure; I50.9 Heart failure, unspecified; I44.0 Atrioventricular block, first degree; Z3A.01 Less than 8 weeks gestation of pregnancy
CPT/HCPCS: 93005; 93010; 99283